=== PATIENT | male | born 1950 | race Caucasian/White ===

== ENCOUNTER 2019-06-06 15:41 | Observation (INO) | payer MEDICARE, BC ==
[2019-06-06 16:30] LABS: Absolute Neutrophil Ct (ANC) 6.53 (1.4-6.9); BASOPHIL % 0.3 % (0.0-0.4); Basophil (Absolute #) 0.03 (0-0.4); Eosinophil % 8.4 % (0.00-5.0); Eosinophil (Absolute #) 0.78 (0-0.5); Hematocrit 39.2 % (42-50); Hemoglobin 12.9 gm/dl (12.5-18.0); Lymphocyte (Absolute #) 0.89 (1.0-4.6); Lymphocytes % 9.5 % (24.0-44.0); Mean Cell Volume 90.3 fl (78-100); Mean Corpuscular Hemoglobin 29.7 pg (26-32); Mean Corpuscular Hgb Concent. 32.9 g/dl (32-36); Mean Platelet Volume 9.6 fl (7.5-11.0); Monocyte (Absolute #) 1.09 (0.0-1.3); Monocytes % 11.7 % (0.0-12.0); Neutrophil % 70.1 % (36.0-66.0); Platelet Count 383 K/mm3 (150-450); Red Blood Count 4.34 M/mm3 (4.1-5.6); Red Cell Distribution Width 12.4 % (11.5-14.0); White Blood Count 9.3 K/mm3 (4.0-10.5)
[2019-06-06 16:41] LABS: ALBUMIN 4.2 g/dL (3.5-5.0); ALKALINE PHOSPHATASE 92 U/L (38-126); ANION GAP 13.9 MEQ/L (5-15); BLOOD UREA NITROGEN 7 mg/dL (9-20); CHLORIDE 95 mmol/L (98-107); Calcium 9.3 mg/dL (8.4-10.2); Carbon Dioxide 32 mmol/L (22-30); Creatinine 1 0.65 mg/dL (0.66-1.25); Glucose 104 mg/dL (74-106); Potassium 4.7 mmol/L (3.5-5.1); SGOT/AST 35 U/L (17-59); SGPT/ALT 16 U/L (0-50); SODIUM 137 mmol/L (137-145); Total Protein 8.3 g/dL (6.3-8.2)
[2019-06-06] MEDS ORDERED: VENTOLIN COMMON CANISTER IH PRN (16:49)
[2019-06-06 17:10] LABS: INFLUENZA A NEGATIVE (NEGATIVE); INFLUENZA B NEGATIVE (NEGATIVE); RESPIRATORY SYNCTIAL VIRUS NEGATIVE (Negative)
[2019-06-06] MEDS ORDERED: MEDICATION INTERVENTION MC SCH (17:30)
[2019-06-06] MEDS: Sodium Chloride 0.9% 1000 ML 1,000 ML IV SCH (17:35)
[2019-06-06] MEDS: Lantus Insulin SQ SCH (17:35)
[2019-06-06] MEDS ORDERED: NON-FORMULARY ITEM (Insulin Detemir [Levemir] 30 UNIT) SQ SCH (18:00)
[2019-06-06] MEDS ORDERED: solu-MEDROL 40 MG IV SCH (18:15)
[2019-06-06] MEDS: Zithromax 500 MG/ 250 ML NaCl Premix 500 MG/250 ML IVPB IV SCH (18:22)
[2019-06-06] MEDS: solu-MEDROL 40 MG IV SCH (18:23)
[2019-06-06] MEDS: ROCEPHIN 1 Gm-D5w 50 ml Bag** 1 G/50 ML IVPB IV SCH (18:23)
[2019-06-06] MEDS ORDERED: PATIENT OWN MEDICATION IH PRN (19:34)
[2019-06-06] MEDS ORDERED: ZOCOR 20MG PO SCH (22:00)
[2019-06-07] MEDS: solu-MEDROL 40 MG IV SCH ×2 (03:11→11:57)
[2019-06-07] MEDS: Sodium Chloride 0.9% 1000 ML 1,000 ML IV SCH ×3 (03:11→22:25)
--- NOTE | 2019-06-07 08:44 | XRAY ---
Indication: Cough, congestion, and chest tightness 3-4 weeks. Comparison: December 11, 2005. PA/lateral chest again hyperinflated. New mild right upper lobe and lesser degree lingula subsegmental atelectasis/scarring. No focal infiltrate, consolidation, or large effusion. Heart is not enlarged. Bony thorax intact with mild degenerative changes. Impression: New bilateral subsegmental atelectasis/scarring. Stable COPD. Negative for acute pneumonic process or CHF. Comment: Preliminary interpretation was made by [facility]. No critical discrepancy.
[2019-06-07] MEDS: ZOCOR 20MG PO SCH (08:56)
[2019-06-07] MEDS: NORVASC 5 MG PO SCH (08:56)
[2019-06-07] MEDS: ROCEPHIN 1 Gm-D5w 50 ml Bag** 1 G/50 ML IVPB IV SCH (08:56)
[2019-06-07] MEDS: Cozaar 50 MG PO SCH (08:56)
[2019-06-07] MEDS: ECOTRIN 81 MG PO SCH (08:57)
[2019-06-07] MEDS: Zithromax 500 MG/ 250 ML NaCl Premix 500 MG/250 ML IVPB IV SCH (09:44)
[2019-06-07] MEDS: PATIENT OWN MEDICATION IH SCH (10:00)
[2019-06-07] MEDS ORDERED: NON-FORMULARY ITEM (Fluticasone/Umeclidin/Vilanter [Trelegy Ellipta 100-62.5-25] 1 PUFF) IH SCH (10:00)
[2019-06-07] MEDS ORDERED: PATIENT OWN MEDICATION IH SCH (10:00)
--- NOTE | 2019-06-07 11:41 | PCM.NOTE ---
Date and Time: 06/07/19 1140 Subjective Assessment: doing ok - Review of Systems Constitutional: No Fever, No Chills Eyes: No Symptoms Ears, Nose, & Throat: No Symptoms Respiratory: No Cough, No Short Of Breath Cardiac: No Chest Pain, No Edema, No Syncope Abdominal/Gastrointestinal: No Abdominal Pain, No Nausea, No Vomiting, No Diarrhea Genitourinary Symptoms: No Dysuria Musculoskeletal: No Back Pain, No Neck Pain Skin: No Rash Neurological: No Dizziness, No Focal Weakness, No Sensory Changes Psychological: No Symptoms Endocrine: No Symptoms Hematologic/Lymphatic: No Symptoms Immunological/Allergic: No Symptoms Objective Exam General Appearance: no apparent distress, alert Neurologic Exam: alert, oriented x 3, cooperative, normal mood/affect, nml cerebellar function, sensation nml, No motor deficits Skin Exam: normal color, warm, dry Eye Exam: PERRL, EOMI, eyes nml inspection Ears, Nose, Throat Exam: normal ENT inspection, pharynx normal, moist mucous membranes Neck Exam: normal inspection, non-tender, supple, full range of motion Respiratory Exam: diminished breath sounds, crackles/rales, rhonchi, wheezing, No respiratory distress Cardiovascular Exam: regular rate/rhythm, normal heart sounds Gastrointestinal/Abdomen Exam: soft, No tenderness, No mass Extremity Exam: normal inspection, normal range of motion Back Exam: normal inspection, normal range of motion, No CVA tenderness, No vertebral tenderness Male Genitalia Exam: deferred Rectal Exam: deferred OBJECTIVE DATA Vital Signs: Vital Signs - 24 hr Temp Pulse Resp BP Pulse Ox 06/07/19 08:00 97.6 F 66 20 178/77 94 L 06/07/19 07:48 64 18 93 L 06/07/19 04:00 97.5 F 56 L 20 170/73 92 L 06/06/19 23:35 97.7 F 55 L 18 144/65 94 L 06/06/19 20:00 98.5 F 84 20 178/81 94 L 06/06/19 19:20 88 20 94 L 06/06/19 16:00 98.5 F 79 18 177/80 93 L Pain Assessment - Last Documented Pain Scale Used 0-10 Pain Scale Intake and Output: Intake & Output 06/04/19 06/05/19 06/06/19 06/07/19 11:59 11:59 11:59 11:59 Intake Total 2634 Balance 2634 Weight 78.6 kg Lab Results: Accuchecks Date 06/07/19 Date 06/06/19 Time 07:58 Time 22:00 Accucheck Value: 171 Accucheck Value: 114 Lab Results-Last 24 Hours 06/06/19 06/06/19 06/06/19 Range/Units 16:10 16:10 16:10 WBC 9.3 (4.0-10.5) K/mm3 RBC 4.34 (4.1-5.6) M/mm3 Hgb 12.9 (12.5-18.0) gm/dl Hct 39.2 L (42-50) % MCV 90.3 (78-100) fl MCH 29.7 (26-32) pg MCHC 32.9 (32-36) g/dl RDW 12.4 (11.5-14.0) % Plt Count 383 (150-450) K/mm3 MPV 9.6 (7.5-11.0) fl Gran % 70.1 H (36.0-66.0) % Eos # (Auto) 0.78 H (0-0.5) Absolute Lymphs (auto) 0.89 L (1.0-4.6) Absolute Monos (auto) 1.09 (0.0-1.3) Lymphocytes % 9.5 L (24.0-44.0) % Monocytes % 11.7 (0.0-12.0) % Eosinophils % 8.4 H (0.00-5.0) % Basophils % 0.3 (0.0-0.4) % Absolute Granulocytes 6.53 (1.4-6.9) Basophils # 0.03 (0-0.4) Sodium 137 (137-145) mmol/L Potassium 4.7 (3.5-5.1) mmol/L Chloride 95 L (98-107) mmol/L Carbon Dioxide 32 H (22-30) mmol/L Anion Gap 13.9 (5-15) MEQ/L BUN 7 L (9-20) mg/dL Creatinine 0.65 L (0.66-1.25) mg/dL Estimated GFR > 60.0 ML/MIN Glucose 104 (74-106) mg/dL Hemoglobin A1c (4.5-6.0) % Calcium 9.3 (8.4-10.2) mg/dL Total Bilirubin 0.70 (0.2-1.3) mg/dL AST 35 (17-59) U/L ALT 16 (0-50) U/L Alkaline Phosphatase 92 (38-126) U/L Serum Total Protein 8.3 H (6.3-8.2) g/dL Albumin 4.2 (3.5-5.0) g/dL Influenza Type A Ag NEGATIVE (NEGATIVE) Influenza Type B Ag NEGATIVE (NEGATIVE) RSV (PCR) NEGATIVE (Negative) 06/06/19 Range/Units 18:00 WBC (4.0-10.5) K/mm3 RBC (4.1-5.6) M/mm3 Hgb (12.5-18.0) gm/dl Hct (42-50) % MCV (78-100) fl MCH (26-32) pg MCHC (32-36) g/dl RDW (11.5-14.0) % Plt Count (150-450) K/mm3 MPV (7.5-11.0) fl Gran % (36.0-66.0) % Eos # (Auto) (0-0.5) Absolute Lymphs (auto) (1.0-4.6) Absolute Monos (auto) (0.0-1.3) Lymphocytes % (24.0-44.0) % Monocytes % (0.0-12.0) % Eosinophils % (0.00-5.0) % Basophils % (0.0-0.4) % Absolute Granulocytes (1.4-6.9) Basophils # (0-0.4) Sodium (137-145) mmol/L Potassium (3.5-5.1) mmol/L Chloride (98-107) mmol/L Carbon Dioxide (22-30) mmol/L Anion Gap (5-15) MEQ/L BUN (9-20) mg/dL Creatinine (0.66-1.25) mg/dL Estimated GFR ML/MIN Glucose (74-106) mg/dL Hemoglobin A1c 6.74 H (4.5-6.0) % Calcium (8.4-10.2) mg/dL Total Bilirubin (0.2-1.3) mg/dL AST (17-59) U/L ALT (0-50) U/L Alkaline Phosphatase (38-126) U/L Serum Total Protein (6.3-8.2) g/dL Albumin (3.5-5.0) g/dL Influenza Type A Ag (NEGATIVE) Influenza Type B Ag (NEGATIVE) RSV (PCR) (Negative) Radiology Exams: Radiology Procedures Category Date Time Status CHEST 2 VIEWS (PA AND LAT) Routine Exams 06/06/19 16:20 Completed Assessment/Plan (1) COPD (chronic obstructive pulmonary disease) with acute bronchitis Current Visit: Yes Status: Acute Assessment & Plan: Chief Complaint Diagnosis pne,influenza Allergies Allergy/AdvReac Type Severity Reaction Status Date / Time Sulfa (Sulfonamide AdvReac Verified 06/06/19 16:09 Antibiotics) Vital Signs (Last 24 hours) Temp Pulse Resp BP Pulse Ox 06/07/19 08:00 97.6 F 66 20 178/77 94 L 06/07/19 07:48 64 18 93 L 06/07/19 04:00 97.5 F 56 L 20 170/73 92 L 06/06/19 23:35 97.7 F 55 L 18 144/65 94 L 06/06/19 20:00 98.5 F 84 20 178/81 94 L 06/06/19 19:20 88 20 94 L 06/06/19 16:00 98.5 F 79 18 177/80 93 L Home Medications Medication Instructions Recorded Confirmed Last Taken Type Albuterol Common Canister 1 puff IH QID PRN 06/06/19 06/06/19 06/06/19 12:00 History [Ventolin Common Canister] 1puff Amlodipine Besylate 5 mg PO DAILY 06/06/19 06/06/19 06/06/19 09:00 History 5mg Aspirin EC 81 mg [Ecotrin 81 81 mg PO DAILY 06/06/19 06/06/19 06/06/19 08:00 History mg] Atorvastatin Calcium 20 mg PO DAILY 06/06/19 06/06/19 06/06/19 08:00 History 20mg Fluticasone/Umeclidin/Vilanter 1 puff IH DAILY 06/06/19 06/06/19 06/06/19 08:00 History [Trelegy Ellipta 100-62.5-25] 1puff Insulin Detemir [Levemir] 30 unit SQ 1800 06/06/19 06/06/19 06/05/19 18:00 History 30units Losartan Potassium 50 mg PO DAILY 06/06/19 06/06/19 06/05/19 08:00 History Current Medications Generic Name Dose Route Start Last Admin Trade Name Freq PRN Reason Stop Dose Admin Amlodipine Besylate 5 mg 06/07/19 10:00 06/07/19 08:56 Norvasc 5 Mg PO 07/07/19 09:59 5 mg DAILY DAVE Administration Aspirin 81 mg 06/07/19 10:00 06/07/19 08:57 Ecotrin 81 Mg PO 07/07/19 09:59 81 mg DAILY DAVE Administration Sodium Chloride 1,000 mls @ 100 mls/hr 06/06/19 17:00 06/07/19 03:11 Sodium Chloride 0.9% 1000 Ml IV 07/06/19 16:59 100 mls/hr .Q10H DAVE Administration Azithromycin 500 mg in 250 mls @ 250 mls/hr 06/06/19 20:00 06/07/19 09:44 Zithromax 500 Mg/ 250 Ml Nacl Premix IV 07/06/19 19:59 250 mls/hr Q24H10 DAVE Administration Ceftriaxone Sodium/Dextrose 1 g in 50 mls @ 100 mls/hr 06/06/19 20:00 08:56 Rocephin 1 Gm-D5w 50 Ml Bag IV 07/06/19 19:59 100 mls/hr Q24H10 DAVE Administration Insulin Glargine 30 unit 06/06/19 18:00 06/06/19 17:35 Lantus Insulin SQ 07/06/19 17:59 30 unit 1800 DAVE Administration Insulin Human Lispro 0 unit 06/06/19 17:00 Humalog SQ 07/06/19 16:59 UD PRN Losartan Potassium 50 mg 06/07/19 10:00 06/07/19 08:56 Cozaar 50 Mg PO 07/07/19 09:59 50 mg DAILY DAVE Administration Methylprednisolone Sodium Succinate 40 mg 06/06/19 20:00 06/07/19 03:11 Solu-Medrol 40 Mg IV 07/06/19 19:59 40 mg Q8H DAVE Administration Patient Own Med ( 2 each 06/06/19 19:34 Ventolin) 07/06/19 19:33 QIDPRN PRN SHORTNESS OF BREATH/WHEEZING Patient Own Med ( 0 each 06/07/19 10:00 Trelegy) 07/07/19 09:59 QAM DAVE Simvastatin 20 mg 06/07/19 10:00 06/07/19 08:56 Zocor 20mg PO 07/07/19 09:59 20 mg DAILY DAVE Administration Discontinued Medications Generic Name Dose Route Start Last Admin Trade Name Freq PRN Reason Stop Dose Admin Albuterol Sulfate 1 puff 06/06/19 16:49 Ventolin Common Canister IH 07/06/19 16:48 QID PRN PRN SHORTNESS OF BREATH Ceftriaxone Sodium/Dextrose 1 g in 50 mls @ 100 mls/hr 06/07/19 20:00 Rocephin 1 Gm-D5w 50 Ml Bag IV 07/07/19 19:59 Q24H10 [facility] Methylprednisolone Sodium Succinate 40 mg 06/06/19 18:15 06/06/19 18:29 Solu-Medrol 40 Mg IV 07/06/19 18:14 Not Given Q8H DAVE Miscellaneous Information 0 each 06/06/19 17:30 Medication Intervention 07/06/19 17:29 .RN TO CHECK WITH RT DAVE Patient Own Medication 1 each 06/07/19 10:00 06/07/19 07:48 Patient Own Medication 07/07/19 09:59 1 each QAM DAVE Administration Simvastatin 20 mg 06/06/19 22:00 Zocor 20mg PO 07/06/19 21:59 HS DAVE Intake & Output (Last 24 hours) 06/04/19 06/05/19 06/06/19 06/07/19 11:59 11:59 11:59 11:59 Intake Total 2634 Balance 2634 Weight 78.6 kg Laboratory Results (Last 24 hours) 06/06/19 06/06/19 06/06/19 18:00 16:10 16:10 WBC RBC Hgb Hct MCV MCH MCHC RDW Plt Count MPV Gran % Eos # (Auto) Absolute Lymphs (auto) Absolute Monos (auto) Lymphocytes % Monocytes % Eosinophils % Basophils % Absolute Granulocytes Basophils # Sodium 137 Potassium 4.7 Chloride 95 L Carbon Dioxide 32 H Anion Gap 13.9 BUN 7 L Creatinine 0.65 L Estimated GFR > 60.0 Glucose 104 Hemoglobin A1c 6.74 H Calcium 9.3 Total Bilirubin 0.70 AST 35 ALT 16 Alkaline Phosphatase 92 Serum Total Protein 8.3 H Albumin 4.2 Influenza Type A Ag NEGATIVE Influenza Type B Ag NEGATIVE RSV (PCR) NEGATIVE 06/06/19 16:10 WBC 9.3 RBC 4.34 Hgb 12.9 Hct 39.2 L MCV 90.3 MCH 29.7 MCHC 32.9 RDW 12.4 Plt Count 383 MPV 9.6 Gran % 70.1 H Eos # (Auto) 0.78 H Absolute Lymphs (auto) 0.89 L Absolute Monos (auto) 1.09 Lymphocytes % 9.5 L Monocytes % 11.7 Eosinophils % 8.4 H Basophils % 0.3 Absolute Granulocytes 6.53 Basophils # 0.03 Sodium Potassium Chloride Carbon Dioxide Anion Gap BUN Creatinine Estimated GFR Glucose Hemoglobin A1c Calcium Total Bilirubin AST ALT Alkaline Phosphatase Serum Total Protein Albumin Influenza Type A Ag Influenza Type B Ag RSV (PCR) Orders (Last 24 hours) Category Date Time Status Activity as Tolerated TOLERATED Activity 06/06/19 15:47 Active Accucheck ACHS Care 06/06/19 16:00 Active Isolation, Initiate & Maintain Q4H Care 06/06/19 15:47 Completed Miscellaneous Nursing Order ROUTINE Care 06/06/19 16:[address] in Observation ROUTINE Care 06/06/19 15:47 Active Sarmad Siu ROUTINE Care 06/06/19 16:00 Active Regular Diet Diet 06/06/19 Dinner Active Regular Diet Diet 06/06/19 Dinner Completed CHEST 2 VIEWS (PA AND LAT) Routine Exams 06/06/19 16:20 Completed CBC W DIFF Urgent Lab 06/06/19 16:10 Completed CMP Urgent Lab 06/06/19 16:10 Completed HEMOGLOBIN A1C Urgent Lab 06/06/19 18:00 Completed Respiratory Panel Urgent Lab 06/06/19 16:10 Completed Albuterol Common Canister [Ventolin Common Canister* Med 06/06/19 16:49 Discontinued ] 1 puff IH QID PRN PRN Amlodipine Besylate 5 mg [Norvasc 5 mg] Med 06/07/19 10:00 Active 5 mg PO DAILY Aspirin EC 81 mg [Ecotrin 81 mg] Med 06/07/19 10:00 Active 81 mg PO DAILY Azithromycin 500 mg/250 ml [Zithromax 500 MG/ 250 ML Med 06/06/19 20:00 Active NaCl Premix] 500 mg in 250 ml IV Q24H10 Ceftriaxone 1 GM/50 ML PREMIX* [ROCEPHIN 1 Gm-D5w 50 ml Med 06/06/19 20:00 Active Bag] 1 g in 50 ml IV Q24H10 Ceftriaxone 1 GM/50 ML PREMIX* [ROCEPHIN 1 Gm-D5w 50 ml Med 06/07/19 20:00 Discontinued Bag] 1 g in 50 ml IV Q24H10 Insulin Glargine [Lantus Insulin] Med 06/06/19 18:00 Active 30 unit SQ 1800 Insulin Lispro [Humalog] Med 06/06/19 17:00 Active 0 unit SQ UD PRN Losartan Potassium 50 mg [Cozaar 50 MG] Med 06/07/19 10:00 Active 50 mg PO DAILY Medication Intervention Med 06/06/19 17:30 Discontinued 0 each MC .RN TO CHECK WITH RT Methylprednisolone Sod Suc 40M [solu-MEDROL 40 MG] Med 06/06/19 18:15 Discontinued 40 mg IV Q8H Methylprednisolone Sod Suc 40M [solu-MEDROL 40 MG] Med 06/06/19 20:00 Active 40 mg IV Q8H NaCl 0.9% 1000 ml [Sodium Chloride 0.9% 1000 ML] 1,000 Med 06/06/19 17:00 Active ml IV 100 mls/hr Patient Own Med [Patient Own Medication] Med 06/07/19 10:00 Active 0 each IH QAM Patient Own Med [Patient Own Medication] Med 06/07/19 10:00 Discontinued 1 each IH QAM Patient Own Med [Patient Own Medication] Med 06/06/19 19:34 Active 2 each IH QIDPRN PRN Simvastatin 20Mg [Zocor 20Mg] Med 06/07/19 10:00 Active 20 mg PO DAILY Simvastatin 20Mg [Zocor 20Mg] Med 06/06/19 22:00 Discontinued 20 mg PO HS Pulse Oximetry .spot check RT 06/07/19 08:11 Active Respiratory MDI UD RT 06/07/19 07:00 Active Respiratory Therapy Assessment DAILY RT 06/06/19 19:30 Active Respiratory Therapy Consult ROUTINE RT 06/06/19 16:15 Completed Patient Care Notes (Last 24 hours) 06/06/19 18:32 Nursing Note by Klarissa Oliverso pt's will bring Kit to hospital on 06/06 Initialized on 06/06/19 18:32 - END OF NOTE 06/06/19 17:55 Nursing Note by Klarissa Oliveros pt placed in isolation as a verbal order from dr. johns. dr. johns ordered a resp panel and said that if it came back negative to dc isolation. pt's lab results were negative and isolation dc'd Initialized on 06/06/19 17:55 - END OF NOTE Code(s): J44.0 - CHR OBSTRUCTIVE PULMON DISEASE WITH (ACUTE) LOWER RESP INFCT; J20.9 - ACUTE BRONCHITIS, UNSPECIFIED
[2019-06-07] MEDS: HUMALOG SQ PRN ×2 (17:10→22:21)
[2019-06-07] MEDS: Lantus Insulin SQ SCH (17:11)
[2019-06-07] MEDS ORDERED: ROCEPHIN 1 Gm-D5w 50 ml Bag** 1 G/50 ML IVPB IV SCH (20:00)
[2019-06-08] MEDS ORDERED: solu-MEDROL 40 MG IV SCH
[2019-06-08 07:55] VITALS: BP 168/75; PULSE 64; O2SAT 92
[2019-06-08] MEDS: ECOTRIN 81 MG PO SCH (09:13)
[2019-06-08] MEDS: ZOCOR 20MG PO SCH (09:13)
[2019-06-08] MEDS: Cozaar 50 MG PO SCH (09:13)
[2019-06-08] MEDS: NORVASC 5 MG PO SCH (09:13)
[2019-06-08] MEDS: PATIENT OWN MEDICATION IH SCH (09:14)
[2019-06-08] MEDS: Zithromax 500 MG/ 250 ML NaCl Premix 500 MG/250 ML IVPB IV SCH (09:14)
[2019-06-08] MEDS: ROCEPHIN 1 Gm-D5w 50 ml Bag** 1 G/50 ML IVPB IV SCH (10:01)
--- NOTE | 2019-06-09 19:33 | PCM.DS ---
Discharge Summary Date of Admission: 06/06/19 15:47 Admitting Physician: SILVIA CAMPBELL Primary Care Provider: SILVIA CAMPBELL Allergies Allergies Sulfa (Sulfonamide Antibiotics) Adverse Reaction (Verified 06/06/19 16:09) Hospital Summary - Hospital Course Hospital Course: Chief Complaint Diagnosis pne,influenza Allergies Allergy/AdvReac Type Severity Reaction Status Date / Time Sulfa (Sulfonamide AdvReac Verified 06/06/19 16:09 Antibiotics) Home Medications Medication Instructions Recorded Confirmed Last Taken Type Albuterol Common Canister 1 puff IH QID PRN 06/06/19 06/06/19 06/06/19 12:00 History [Ventolin Common Canister] 1puff Amlodipine Besylate 5 mg PO DAILY 06/06/19 06/06/19 06/06/19 09:00 History 5mg Aspirin EC 81 mg [Ecotrin 81 81 mg PO DAILY 06/06/19 06/06/19 06/06/19 08:00 History mg] Atorvastatin Calcium 20 mg PO DAILY 06/06/19 06/06/19 06/06/19 08:00 History 20mg Fluticasone/Umeclidin/Vilanter 1 puff IH DAILY 06/06/19 06/06/19 06/06/19 08:00 History [Trelegy Ellipta 100-62.5-25] 1puff Insulin Detemir [Levemir] 30 unit SQ 1800 06/06/19 06/06/19 06/05/19 18:00 History 30units Losartan Potassium 50 mg PO DAILY 06/06/19 06/06/19 06/05/19 08:00 History Cephalexin Mh 500 mg [Keflex 500 500 mg PO QID #28 capsule 06/08/19 Unknown Rx mg] Methylprednisolone Packet 4 mg PO UD #30 packet 06/08/19 Unknown Rx [Medrol Dosepack] Current Medications Discontinued Medications Generic Name Dose Route Start Last Admin Trade Name Freq PRN Reason Stop Dose Admin Albuterol Sulfate 1 puff 06/06/19 16:49 Ventolin Common Canister IH 07/06/19 16:48 QID PRN PRN SHORTNESS OF BREATH Amlodipine Besylate 5 mg 06/07/19 10:00 06/08/19 09:13 Norvasc 5 Mg PO 07/07/19 09:59 5 mg DAILY DAVE Administration Aspirin 81 mg 06/07/19 10:00 06/08/19 09:13 Ecotrin 81 Mg PO 07/07/19 09:59 81 mg DAILY DAVE Administration Sodium Chloride 1,000 mls @ 100 mls/hr 06/06/19 17:00 06/07/19 22:25 Sodium Chloride 0.9% 1000 Ml IV 07/06/19 16:59 100 mls/hr .Q10H DAVE Administration Azithromycin 500 mg in 250 mls @ 250 mls/hr 06/06/19 20:00 06/08/19 09:14 Zithromax 500 Mg/ 250 Ml Nacl Premix IV 07/06/19 19:59 Not Given Q24H10 DAVE Ceftriaxone Sodium/Dextrose 1 g in 50 mls @ 100 mls/hr 06/07/19 20:00 Rocephin 1 Gm-D5w 50 Ml Bag IV 07/07/19 19:59 Q24H10 DAVE Ceftriaxone Sodium/Dextrose 1 g in 50 mls @ 100 mls/hr 06/06/19 20:00 10:01 Rocephin 1 Gm-D5w 50 Ml Bag IV 07/06/19 19:59 Not Given Q24H10 DAVE Insulin Glargine 30 unit 06/06/19 18:00 06/07/19 17:11 Lantus Insulin SQ 07/06/19 17:59 30 unit 1800 DAVE Administration Insulin Human Lispro 0 unit 06/06/19 17:00 06/07/19 22:21 Humalog SQ 07/06/19 16:59 2 unit UD PRN Administration Losartan Potassium 50 mg 06/07/19 10:00 06/08/19 09:13 Cozaar 50 Mg PO 07/07/19 09:59 50 mg DAILY DAVE Administration Methylprednisolone Sodium Succinate 40 mg 06/06/19 18:15 06/06/19 18:29 Solu-Medrol 40 Mg IV 07/06/19 18:14 Not Given Q8H DAVE Methylprednisolone Sodium Succinate 40 mg 06/06/19 20:00 06/07/19 11:57 Solu-Medrol 40 Mg IV 07/06/19 19:59 40 mg Q8H DAVE Administration Methylprednisolone Sodium Succinate 40 mg 06/08/19 00:00 06/08/19 00:17 Solu-Medrol 40 Mg IV 07/08/19 00:00 40 mg Q12H DAVE Administration Miscellaneous Information 0 each 06/06/19 17:30 Medication Intervention 07/06/19 17:29 .RN TO CHECK WITH RT [facility] Patient Own Medication 1 each 06/07/19 10:00 06/07/19 07:48 Patient Own Medication 07/07/19 09:59 1 each QAM DAVE Administration Patient Own Med ( 2 each 06/06/19 19:34 Ventolin) 07/06/19 19:33 QIDPRN PRN SHORTNESS OF BREATH/WHEEZING Patient Own Med ( 0 each 06/07/19 10:00 06/08/19 09:14 Trelegy) 07/07/19 09:59 1 each QAM DAVE Administration Simvastatin 20 mg 06/06/19 22:00 Zocor 20mg PO 07/06/19 21:59 HS [facility] Simvastatin 20 mg 06/07/19 10:00 06/08/19 09:13 Zocor 20mg PO 07/07/19 09:59 20 mg DAILY DAVE Administration Intake & Output (Last 24 hours) 06/07/19 06/08/19 06/09/19 06/10/19 11:59 11:59 11:59 11:59 Intake Total 2634 4313 Balance 2634 4313 Weight 78.6 kg - Vitals & Intake/Output Vital Signs: Vital Signs Temperature 97.3 F 06/08/19 07:54 Pulse Rate 64 06/08/19 07:54 Respiratory Rate 18 06/08/19 07:54 Blood Pressure 168/75 06/08/19 07:54 O2 Sat by Pulse Oximetry 92 L 06/08/19 07:54 Intake & Output: Intake & Output 06/07/19 06/08/19 06/09/19 06/10/19 11:59 11:59 11:59 11:59 Intake Total 2634 4313 Balance 2634 4313 Weight 78.6 kg - Lab Result Diagrams: 06/06/19 16:10 06/06/19 16:10 - Procedures and Test Procedures and Tests throughout Hospitalization: Therapy Orders & Screens 06/06/19 16:15 Respiratory Therapy Consult ROUTINE Comment: Reason For Exam: pne,influenza Diagnosis: pne,influenza 06/06/19 19:30 Respiratory Therapy Assessment DAILY Comment: Diagnosis: pne,influenza 06/07/19 07:00 Respiratory MDI UD Comment: [place] Diagnosis: pne,influenza 06/08/19 09:32 Qualify for Home Oxygen ROUTINE Comment: SITTING AND WALKING PLEASE Diagnosis: pne,influenza Discharge Exam General Appearance: no apparent distress, alert Neurologic Exam: alert, oriented x 3, cooperative, normal mood/affect, nml cerebellar function, sensation nml, No motor deficits Eye Exam: PERRL, EOMI, eyes nml inspection Ears, Nose, Throat Exam: normal ENT inspection, pharynx normal, moist mucous membranes Neck Exam: normal inspection, non-tender, supple, full range of motion Respiratory Exam: normal breath sounds, lungs clear, No respiratory distress Cardiovascular Exam: regular rate/rhythm, normal heart sounds Gastrointestinal/Abdomen Exam: soft, No tenderness, No mass Male Genitalia Exam: deferred Rectal Exam: deferred Back Exam: normal inspection, normal range of motion, No CVA tenderness, No vertebral tenderness Extremity Exam: normal inspection, normal range of motion Skin Exam: normal color, warm, dry Final Diagnosis/Problem List - Final Discharge Diagnosis/Problem (1) COPD (chronic obstructive pulmonary disease) with acute bronchitis Status: Acute Assessment & Plan: Chief Complaint Diagnosis pne,influenza Allergies Allergy/AdvReac Type Severity Reaction Status Date / Time Sulfa (Sulfonamide AdvReac Verified 06/06/19 16:09 Antibiotics) Home Medications Medication Instructions Recorded Confirmed Last Taken Type Albuterol Common Canister 1 puff IH QID PRN 06/06/19 06/06/19 06/06/19 12:00 History [Ventolin Common Canister] 1puff Amlodipine Besylate 5 mg PO DAILY 06/06/19 06/06/19 06/06/19 09:00 History 5mg Aspirin EC 81 mg [Ecotrin 81 81 mg PO DAILY 06/06/19 06/06/19 06/06/19 08:00 History mg] Atorvastatin Calcium 20 mg PO DAILY 06/06/19 06/06/19 06/06/19 08:00 History 20mg Fluticasone/Umeclidin/Vilanter 1 puff IH DAILY 06/06/19 06/06/19 06/06/19 08:00 History [Kit Denney 100-62.5-25] 1puff Insulin Detemir [Levemir] 30 unit SQ 1800 06/06/19 06/06/19 06/05/19 18:00 History 30units Losartan Potassium 50 mg PO DAILY 06/06/19 06/06/19 06/05/19 08:00 History Cephalexin Mh 500 mg [Keflex 500 500 mg PO QID #28 capsule 06/08/19 Unknown Rx mg] Methylprednisolone Packet 4 mg PO UD #30 packet 06/08/19 Unknown Rx [Medrol Dosepack] Current Medications Discontinued Medications Generic Name Dose Route Start Last Admin Trade Name Freq PRN Reason Stop Dose Admin Albuterol Sulfate 1 puff 06/06/19 16:49 Ventolin Common Canister IH 07/06/19 16:48 QID PRN PRN SHORTNESS OF BREATH Amlodipine Besylate 5 mg 06/07/19 10:00 06/08/19 09:13 Norvasc 5 Mg PO 07/07/19 09:59 5 mg DAILY DAVE Administration Aspirin 81 mg 06/07/19 10:00 06/08/19 09:13 Ecotrin 81 Mg PO 07/07/19 09:59 81 mg DAILY DAVE Administration Sodium Chloride 1,000 mls @ 100 mls/hr 06/06/19 17:00 06/07/19 22:25 Sodium Chloride 0.9% 1000 Ml IV 07/06/19 16:59 100 mls/hr .Q10H DAVE Administration Azithromycin 500 mg in 250 mls @ 250 mls/hr 06/06/19 20:00 06/08/19 09:14 Zithromax 500 Mg/ 250 Ml Nacl Premix IV 07/06/19 19:59 Not Given Q24H10 DAVE Ceftriaxone Sodium/Dextrose 1 g in 50 mls @ 100 mls/hr 06/07/19 20:00 Rocephin 1 Gm-D5w 50 Ml Bag IV 07/07/19 19:59 Q24H10 DAVE Ceftriaxone Sodium/Dextrose 1 g in 50 mls @ 100 mls/hr 06/06/19 20:00 10:01 Rocephin 1 Gm-D5w 50 Ml Bag IV 07/06/19 19:59 Not Given Q24H10 DAVE Insulin Glargine 30 unit 06/06/19 18:00 06/07/19 17:11 Lantus Insulin SQ 07/06/19 17:59 30 unit 1800 DAVE Administration Insulin Human Lispro 0 unit 06/06/19 17:00 06/07/19 22:21 Humalog SQ 07/06/19 16:59 2 unit UD PRN Administration Losartan Potassium 50 mg 06/07/19 10:00 06/08/19 09:13 Cozaar 50 Mg PO 07/07/19 09:59 50 mg DAILY DAVE Administration Methylprednisolone Sodium Succinate 40 mg 06/06/19 18:15 06/06/19 18:29 Solu-Medrol 40 Mg IV 07/06/19 18:14 Not Given Q8H DAVE Methylprednisolone Sodium Succinate 40 mg 06/06/19 20:00 06/07/19 11:57 Solu-Medrol 40 Mg IV 07/06/19 19:59 40 mg Q8H DAVE Administration Methylprednisolone Sodium Succinate 40 mg 06/08/19 00:00 06/08/19 00:17 Solu-Medrol 40 Mg IV 07/08/19 00:00 40 mg Q12H DAVE Administration Miscellaneous Information 0 each 06/06/19 17:30 Medication Intervention 07/06/19 17:29 .RN TO CHECK WITH RT [facility] Patient Own Medication 1 each 06/07/19 10:00 06/07/19 07:48 Patient Own Medication 07/07/19 09:59 1 each QAM DAVE Administration Patient Own Med ( 2 each 06/06/19 19:34 Ventolin) 07/06/19 19:33 QIDPRN PRN SHORTNESS OF BREATH/WHEEZING Patient Own Med ( 0 each 06/07/19 10:00 06/08/19 09:14 Trelegy) 07/07/19 09:59 1 each QAM DAVE Administration Simvastatin 20 mg 06/06/19 22:00 Zocor 20mg PO 07/06/19 21:59 HS DAVE Simvastatin 20 mg 06/07/19 10:00 06/08/19 09:13 Zocor 20mg PO 07/07/19 09:59 20 mg DAILY DAVE Administration Intake & Output (Last 24 hours) 06/07/19 06/08/19 06/09/19 06/10/19 11:59 11:59 11:59 11:59 Intake Total 2637 4314 Balance 2630 4313 Weight 78.6 kg Code(s): J44.0 - CHR OBSTRUCTIVE PULMON DISEASE WITH (ACUTE) LOWER RESP INFCT; J20.9 - ACUTE BRONCHITIS, UNSPECIFIED - Discharge Discharge Date: 06/08/19 Disposition: Home, Self-Care Condition: Stable Prescriptions: New Cephalexin Mh 500 mg [Keflex 500 mg] 500 mg PO QID #28 capsule Methylprednisolone Packet [Medrol Dosepack] 4 mg PO UD #30 packet Continue Albuterol Common Canister [Ventolin Common Canister] 1 puff IH QID PRN PRN Reason: Shortness Of Breath Amlodipine Besylate 5 mg PO DAILY Aspirin EC 81 mg [Ecotrin 81 mg] 81 mg PO DAILY Atorvastatin Calcium 20 mg PO DAILY Fluticasone/Umeclidin/Vilanter [Trelegy Ellipta 100-62.5-25] 1 puff IH DAILY Insulin Detemir [Levemir] 30 unit SQ 1800 Losartan Potassium 50 mg PO DAILY Instructions: Chronic Obstructive Pulmonary Disease (COPD), Including Emphysema , Exacerbation of COPD (DC) Follow up with: SILVIA CAMPBELL MD [Primary Care Provider] - 06/15/19 11:15 am Forms: Discharge Instructions
== END 2019-06-08 10:25 | disposition home or self-care (01) ==
LOC: MED SURG 15:47
PROVIDERS: ADMIT General Practice; ATTEND General Practice
DX: J44.1 Chronic obstructive pulmonary disease with (acute) exacerbation (principal); E11.9 Type 2 diabetes mellitus without complications; M35.3 Polymyalgia rheumatica; E78.00 Pure hypercholesterolemia, unspecified; I10 Essential (primary) hypertension; Z79.899 Other long term (current) drug therapy
CPT/HCPCS: 36415; 71046; 80053; 82962; 83036; 85025; 87631; 94640; 94760; G0378; J0456; J0696; J1817; J2920; A9270-GY

== ENCOUNTER 2022-02-06 14:11 | Inpatient (IN) | payer MEDICARE, BC ==
--- NOTE | 2022-02-06 14:13 | ERPHSYRPT ---
- History of Present Illness Time Seen by Provider: 02/06/22 14:13 Source: patient Exam Limitations: no limitations Physician History: This is a 71-year-old white male patient of Dr. Campbell who sent the patient over to our facility because the patient's blood pressure is very high and he was having headaches. Patient has been going through medication changes for treatment of his high blood pressure. Patient is on losartan, amlodipine, carvedilol and was started on clonidine recently. Patient has a history of hypertension, diabetes, hyperlipidemia and COPD. He has had no visual changes. He denies chest pain. He denies shortness of breath. His last dose of any blood pressure medication was approximately 2-1/2 hours ago. Timing/Duration: worse, other (Intermittently over 1 month) Severity: moderate Associated Symptoms: headaches, No nausea, No vomiting, No shortness of breath, No chest pain, No fever, No weakness Allergies/Adverse Reactions: Sulfa (Sulfonamide Antibiotics) Adverse Reaction (Verified 02/06/22 14:27) Home Medications: Albuterol Common Canister [Ventolin Common Canister] 1 puff IH QID PRN 06/06/19 [History] Aspirin EC 81 mg [Ecotrin 81 mg] 81 mg PO DAILY 06/06/19 [History] Atorvastatin Calcium 20 mg PO DAILY 06/06/19 [History] Fluticasone/Umeclidin/Vilanter [Trelegy Ellipta 100-62.5-25] 1 puff IH DAILY 06/06/19 [History] Insulin Detemir [Levemir] 30 unit SQ 1800 06/06/19 [History] Losartan Potassium 50 mg PO BID 06/06/19 [History] Carvedilol 3.125 mg [Coreg 3.125 MG] 3.125 mg PO BID 02/06/22 [History] cloNIDine HCL [Clonidine HCl] 0.1 mg PO BID 02/06/22 [History] Travel Risk - International Travel Have you traveled outside of the country in past 3 weeks: No - Coronavirus Screening Are you exhibiting any of the following symptoms?: No Close contact with a COVID-19 positive Pt in past 14-21 Days: No - Review of Systems Constitutional: No Symptoms Eyes: No Symptoms Ears, Nose, & Throat: No Symptoms Respiratory: No Symptoms Cardiac: No Symptoms Abdominal/Gastrointestinal: No Symptoms Genitourinary Symptoms: No Symptoms Musculoskeletal: No Symptoms Skin: No Symptoms Neurological: Headache Psychological: No Symptoms Endocrine: No Symptoms Hematologic/Lymphatic: No Symptoms Immunological/Allergic: No Symptoms All Other Systems: Reviewed and Negative - Past Medical History Pertinent Past Medical History: Yes Neurological History: No Pertinent History ENT History: No Pertinent History Cardiac History: Hypertension Respiratory History: COPD Endocrine Medical History: Diabetes Type II Musculoskeletal History: No Pertinent History GI Medical History: Hernia History: No Pertinent History Psycho-Social History: No Pertinent History Male Reproductive Disorders: No Pertinent History - Past Surgical History Past Surgical History: Yes Neuro Surgical History: No Pertinent History Cardiac: No Pertinent History Respiratory: No Pertinent History Gastrointestinal: Hernia Repair Genitourinary: No Pertinent History Musculoskeletal: No Pertinent History Male Surgical History: No Pertinent History - Social History Smoking Status: Former smoker Drug Use: none - Nursing Vital Signs Nursing Vital Signs: Initial Vital Signs Blood Pressure 264/104 02/06/22 14:16 Pain Scale Pain Intensity 7 - Physical Exam General Appearance: mild distress, alert, anxiety Eye Exam: PERRL/EOMI, eyes nml inspection Ears, Nose, Throat Exam: normal ENT inspection, moist mucous membranes Neck Exam: normal inspection, non-tender, supple, full range of motion Respiratory Exam: normal breath sounds, lungs clear, airway intact, No chest tenderness, No respiratory distress Cardiovascular Exam: regular rate/rhythm, normal heart sounds, normal peripheral pulses Gastrointestinal/Abdomen Exam: soft, normal bowel sounds, No tenderness Rectal Exam: not done Back Exam: normal inspection, normal range of motion, No CVA tenderness, No vertebral tenderness Extremity Exam: normal inspection, normal range of motion, pelvis stable Neurologic Exam: alert, oriented x 3, cooperative, shellfish shucker II-XII nml as tested, normal mood/affect, nml cerebellar function, nml station & gait, sensation nml Skin Exam: normal color, warm, dry Lymphatic Exam: No adenopathy SpO2 Interpretation: normal O2 Delivery: Room Air - Course Nursing assessment & vital signs reviewed: Yes EKG Interpreted by Me: RATE (52), Sinus Rhythm, NORMAL AXIS, NORMAL INTERVALS, NORMAL QRS, NORMAL ST-T, Other (I do not agree with the computer reading of minimal ST elevation in the inferior leads.) Ordered Tests: Active Orders 24 hr Category Date Time Status Storeroom Clerk STAT Care 02/06/22 14:27 Active EKG-ER Only STAT Care 02/06/22 14:27 Active IV Insertion STAT Care 02/06/22 14:27 Active NPO (ED) STAT Care 02/06/22 14:26 Active HEAD WITHOUT CONTRAST [CT] Stat Exams 02/06/22 14:26 Completed CBC W DIFF Stat Lab 02/06/22 14:26 Completed CMP Stat Lab 02/06/22 14:25 Completed MAGNESIUM Stat Lab 02/06/22 14:25 Completed PROTIME WITH INR Stat Lab 02/06/22 14:25 Completed TROPONIN Q4H Lab 02/06/22 14:25 Completed TROPONIN Q4H Lab 02/06/22 18:45 Ordered TROPONIN Q4H Lab 02/06/22 22:45 Ordered UA W/RFX CULTURE Stat Lab 02/06/22 Ordered Medication Summary Discontinued Medications Generic Name Dose Route Start Last Admin Trade Name Freq PRN Reason Stop Dose Admin Hydralazine HCl 10 mg 02/06/22 14:27 02/06/22 14:32 Hydralazine Hcl 20 Mg/Ml Vial IV 02/06/22 14:28 10 mg STAT ONE Administration Hydralazine HCl Confirm 02/06/22 14:29 Hydralazine Hcl 20 Mg/Ml Vial Administered 02/06/22 14:30 Dose 20 mg .ROUTE .STK-MED ONE Hydralazine HCl 10 mg 02/06/22 15:06 02/06/22 15:10 Hydralazine Hcl 20 Mg/Ml Vial IV 02/06/22 15:07 10 mg STAT ONE Administration Hydralazine HCl Confirm 02/06/22 15:09 Hydralazine Hcl 20 Mg/Ml Vial Administered 02/06/22 15:10 Dose 20 mg .ROUTE .STK-MED ONE Lab/Rad Data: Laboratory Result Diagrams 02/06/22 14:26 02/06/22 14:25 Laboratory Results 02/06/22 02/06/22 02/06/22 Range/Units 14:26 14:25 14:25 WBC 14.0 H (4.0-10.5) x10^3/uL RBC 4.72 (4.1-5.6) x10^6/uL Hgb 14.2 (12.5-18.0) g/dL Hct 44.3 (42-50) % MCV 93.9 (78-100) fL MCH 30.1 (26-32) pg MCHC 32.1 (32-36) g/dL RDW 12.2 (11.5-14.0) % Plt Count 325 (150-450) x10^3/uL MPV 10.4 (7.5-11.0) fL Gran % 68.7 H (36.0-66.0) % Immature Gran % (Auto) 0.4 (0.00-0.4) % Nucleat RBC Rel Count 0.0 (0.00-0.1) % Eos # (Auto) 0.23 (0-0.5) x10^3/uL Immature Gran # (Auto) 0.05 H (0.00-0.03) x10^3u/L Absolute Lymphs (auto) 2.40 (1.0-4.6) x10^3/uL Absolute Monos (auto) 1.62 H (0.0-1.3) x10^3/uL Absolute Nucleated RBC 0.00 (0.00-0.01) x10^3u/L Lymphocytes % 17.1 L (24.0-44.0) % Monocytes % 11.6 (0.0-12.0) % Eosinophils % 1.6 (0.00-5.0) % Basophils % 0.6 (0.0-0.4) % Absolute Granulocytes 9.62 H (1.4-6.9) x10^3/uL Basophils # 0.09 (0-0.4) x10^3/uL PT 11.6 (9.4-12.5) SECONDS INR 1.10 (0.8-3.0) Sodium (137-145) mmol/L Potassium (3.5-5.1) mmol/L Chloride (98-107) mmol/L Carbon Dioxide (22-30) mmol/L Anion Gap (5-15) MEQ/L BUN (9-20) mg/dL Creatinine (0.66-1.25) mg/dL Estimated GFR ML/MIN Glucose (74-106) mg/dL Calcium (8.4-10.2) mg/dL Magnesium (1.6-2.3) mg/dL Total Bilirubin (0.2-1.3) mg/dL AST (17-59) U/L ALT (0-50) U/L Alkaline Phosphatase (38-126) U/L Troponin I 0.013 (0.000-0.034) ng/mL Serum Total Protein (6.3-8.2) g/dL Albumin (3.5-5.0) g/dL Slides for Path Review YES 02/06/22 Range/Units 14:25 WBC (4.0-10.5) x10^3/uL RBC (4.1-5.6) x10^6/uL Hgb (12.5-18.0) g/dL Hct (42-50) % MCV (78-100) fL MCH (26-32) pg MCHC (32-36) g/dL RDW (11.5-14.0) % Plt Count (150-450) x10^3/uL MPV (7.5-11.0) fL Gran % (36.0-66.0) % Immature Gran % (Auto) (0.00-0.4) % Nucleat RBC Rel Count (0.00-0.1) % Eos # (Auto) (0-0.5) x10^3/uL Immature Gran # (Auto) (0.00-0.03) x10^3u/L Absolute Lymphs (auto) (1.0-4.6) x10^3/uL Absolute Monos (auto) (0.0-1.3) x10^3/uL Absolute Nucleated RBC (0.00-0.01) x10^3u/L Lymphocytes % (24.0-44.0) % Monocytes % (0.0-12.0) % Eosinophils % (0.00-5.0) % Basophils % (0.0-0.4) % Absolute Granulocytes (1.4-6.9) x10^3/uL Basophils # (0-0.4) x10^3/uL PT (9.4-12.5) SECONDS INR (0.8-3.0) Sodium 138 (137-145) mmol/L Potassium 3.8 (3.5-5.1) mmol/L Chloride 98 (98-107) mmol/L Carbon Dioxide 32 H (22-30) mmol/L Anion Gap 11.9 (5-15) MEQ/L BUN 17 (9-20) mg/dL Creatinine 0.85 (0.66-1.25) mg/dL Estimated GFR > 60.0 ML/MIN Glucose 94 (74-106) mg/dL Calcium 8.9 (8.4-10.2) mg/dL Magnesium 1.7 (1.6-2.3) mg/dL Total Bilirubin 0.50 (0.2-1.3) mg/dL AST 22 (17-59) U/L ALT 19 (0-50) U/L Alkaline Phosphatase 76 (38-126) U/L Troponin I (0.000-0.034) ng/mL Serum Total Protein 6.8 (6.3-8.2) g/dL Albumin 3.9 (3.5-5.0) g/dL Slides for Path Review - Progress Progress: improved, re-examined Progress Note: 02/06/22 15:16 CAT scan of the head without contrast shows no acute intracranial abnormality. Clinically, the patient states that his headache is now significantly improved. 02/06/22 15:41 Medical decision making: This patient has hypertensive urgency. At this time his systolic blood pressure is now 187. Symptomatically he is improved. However, we will place him in observation on a monitored bed and give him a as needed dosing of hydralazine intravenously with parameters and monitor him in the hospital. I spoke with Dr. Campbell and he agrees we should place him in observation on a monitored bed. 02/06/22 15:42 Discussed with : Karen Counseled pt/family regarding: lab results, diagnosis, rad results - Departure Departure Disposition: Observation Clinical Impression: Hypertensive urgency Condition: Fair Critical Care Time: Yes Critical Care Time(excluding separately billable procedures): Critical 30-74 mins (40 minutes) Referrals: SILVIA CAMPBELL MD [Primary Care Provider] - Follow up/PCP as directed
[2022-02-06] MEDS ORDERED: APRESOLINE 20 MG/ML INJ IV ONE ×2 (14:27→15:06)
[2022-02-06] MEDS ORDERED: APRESOLINE 20 MG/ML INJ ONE ×2 (14:29→15:09)
[2022-02-06 14:35] LABS: Absolute Neutrophil Ct (ANC) 9.62 x10^3/uL (1.4-6.9); Basophil (Absolute #) 0.09 x10^3/uL (0-0.4); Eosinophil % 1.6 % (0.00-5.0); Eosinophil (Absolute #) 0.23 x10^3/uL (0-0.5); Hematocrit 44.3 % (42-50); Hemoglobin 14.2 g/dL (12.5-18.0); Lymphocytes % 17.1 % (24.0-44.0); Mean Cell Volume 93.9 fL (78-100); Mean Corpuscular Hemoglobin 30.1 pg (26-32); Mean Corpuscular Hgb Concent. 32.1 g/dL (32-36); Mean Platelet Volume 10.4 fL (7.5-11.0); Monocyte (Absolute #) 1.62 x10^3/uL (0.0-1.3); Monocytes % 11.6 % (0.0-12.0); Neutrophil % 68.7 % (36.0-66.0); Platelet Count 325 x10^3/uL (150-450); Red Blood Count 4.72 x10^6/uL (4.1-5.6); Red Cell Distribution Width 12.2 % (11.5-14.0)
[2022-02-06 14:54] LABS: INR 1.1 (0.8-3.0); PROTIME 11.6 SECONDS (9.4-12.5)
[2022-02-06 14:59] LABS: Slide Review 1 YES
[2022-02-06 15:01] LABS: ALBUMIN 3.9 g/dL (3.5-5.0); ALKALINE PHOSPHATASE 76 U/L (38-126); ANION GAP 11.9 MEQ/L (5-15); BLOOD UREA NITROGEN 17 mg/dL (9-20); CHLORIDE 98 mmol/L (98-107); Calcium 8.9 mg/dL (8.4-10.2); Carbon Dioxide 32 mmol/L (22-30); Creatinine 1 0.85 mg/dL (0.66-1.25); EST GLOMERULAR FILTRATION RATE > 60.0 ML/MIN; Glucose 94 mg/dL (74-106); MAGNESIUM 1.7 mg/dL (1.6-2.3); Potassium 3.8 mmol/L (3.5-5.1); SGOT/AST 22 U/L (17-59); SGPT/ALT 19 U/L (0-50); SODIUM 138 mmol/L (137-145); Total Protein 6.8 g/dL (6.3-8.2)
--- NOTE | 2022-02-06 15:02 | XRAY ---
Indication: Nausea and headaches. Multiple contiguous axial images obtained through the head without contrast. Comparison: None Age-appropriate global atrophy. No acute intracranial hemorrhage, abnormal extra-axial fluid collection, or mass effect. Fourth ventricle is midline without hydrocephalus. Murrell-white matter differentiation preserved. Bony calvarium intact. Visualized paranasal sinuses and mastoid air cells are clear. Impression: Negative CT head without contrast exam.
[2022-02-06] MEDS ORDERED: Zofran 4 MG/2 ML VIAL IV ONE (15:47)
[2022-02-06] MEDS ORDERED: MORPHINE SULFATE 2 MG INJ IV ONE (15:47)
[2022-02-06] MEDS ORDERED: Zofran 4 MG/2 ML VIAL ONE (15:53)
[2022-02-06] MEDS ORDERED: MORPHINE SULFATE 2 MG INJ ONE (15:54)
[2022-02-06 16:07] LABS: INFLUENZA A NEGATIVE (NEGATIVE); INFLUENZA B NEGATIVE (NEGATIVE); RESPIRATORY SYNCTIAL VIRUS NEGATIVE (Negative); SARS-CoV-2 Xpert Express NEGATIVE (NEGATIVE)
[2022-02-06] MEDS ORDERED: APRESOLINE 20 MG/ML INJ IV PRN (16:49)
[2022-02-06] MEDS ORDERED: MORPHINE SULFATE 4 MG INJ IV PRN (16:49)
[2022-02-06] MEDS ORDERED: Zofran 4 MG/2 ML VIAL IV PRN (16:49)
[2022-02-06 16:53] LABS: RBC 0-2 /HPF (0-2)
[2022-02-06] MEDS ORDERED: VENTOLIN COMMON CANISTER IH PRN (16:57)
[2022-02-06 17:04] LABS: Appearance CLEAR (CLEAR); Bilirubin NEGATIVE (NEGATIVE); Glucose NEGATIVE (NEGATIVE); Ketones NEGATIVE (NEGATIVE); Nitrite NEGATIVE (NEGATIVE); Protein,Urine Dip 100 (Negative); RBC NEGATIVE Ery/ul (0-5); Specific Gravity 1.015 (1.005-1.025); Urobilinogen 0.2 mg/dL (0-1)
[2022-02-06 17:05] LABS: Dipstick done @ ? MAIN LAB; Urine Cultured Indicated? NO
[2022-02-06] MEDS: Lantus Insulin SQ SCH (17:10)
[2022-02-06] MEDS ORDERED: MEDICATION INTERVENTION MC SCH (17:15)
[2022-02-06] MEDS ORDERED: NON-FORMULARY ITEM (Insulin Detemir [Levemir] 100 UNIT/ML Vial) SQ SCH (18:00)
[2022-02-06] MEDS: Advair Hfa 115/21 Common canister IH SCH (18:24)
[2022-02-06] MEDS: Cozaar 50 MG PO SCH (21:56)
[2022-02-06] MEDS: ZOCOR 20MG PO SCH (21:56)
[2022-02-06] MEDS: Coreg 3.125 MG PO SCH (21:56)
[2022-02-06] MEDS: CLONIDINE 0.1 MG TABLET PO SCH (21:56)
[2022-02-06] MEDS ORDERED: ATORVASTATIN CALCIUM PO SCH (22:00)
[2022-02-07] MEDS: TYLENOL 325 MG PO PRN (02:07)
[2022-02-07] MEDS ORDERED: APRESOLINE 20 MG/ML INJ IV ONE ×2 (04:48→19:01)
[2022-02-07 05:29] LABS: Absolute Neutrophil Ct (ANC) 8.76 x10^3/uL (1.4-6.9); Basophil (Absolute #) 0.07 x10^3/uL (0-0.4); Eosinophil % 2.4 % (0.00-5.0); Eosinophil (Absolute #) 0.29 x10^3/uL (0-0.5); Hematocrit 42.1 % (42-50); Hemoglobin 13.5 g/dL (12.5-18.0); Mean Cell Volume 92.5 fL (78-100); Mean Corpuscular Hemoglobin 29.7 pg (26-32); Mean Corpuscular Hgb Concent. 32.1 g/dL (32-36); Mean Platelet Volume 9.8 fL (7.5-11.0); Monocyte (Absolute #) 1.24 x10^3/uL (0.0-1.3); Monocytes % 10.2 % (0.0-12.0); Neutrophil % 72.3 % (36.0-66.0); Platelet Count 294 x10^3/uL (150-450); Red Blood Count 4.55 x10^6/uL (4.1-5.6); Red Cell Distribution Width 12.1 % (11.5-14.0); White Blood Count 12.1 x10^3/uL (4.0-10.5)
[2022-02-07 06:15] LABS: ALBUMIN 3.5 g/dL (3.5-5.0); ALKALINE PHOSPHATASE 66 U/L (38-126); ANION GAP 8.5 MEQ/L (5-15); BLOOD UREA NITROGEN 19 mg/dL (9-20); CHLORIDE 97 mmol/L (98-107); Calcium 9.1 mg/dL (8.4-10.2); Carbon Dioxide 32 mmol/L (22-30); Creatinine 1 0.91 mg/dL (0.66-1.25); EST GLOMERULAR FILTRATION RATE > 60.0 ML/MIN; Glucose 124 mg/dL (74-106); Potassium 3.7 mmol/L (3.5-5.1); SGOT/AST 18 U/L (17-59); SGPT/ALT 17 U/L (0-50); SODIUM 134 mmol/L (137-145); Total Protein 6.2 g/dL (6.3-8.2)
[2022-02-07] MEDS: CLONIDINE 0.1 MG TABLET PO SCH (06:49)
[2022-02-07] MEDS: Advair Hfa 115/21 Common canister IH SCH ×2 (07:00→19:10)
[2022-02-07] MEDS: Coreg 3.125 MG PO SCH (08:00)
[2022-02-07] MEDS: APRESOLINE 20 MG/ML INJ IV PRN ×3 (08:00→17:21)
[2022-02-07] MEDS: ECOTRIN 81 MG PO SCH (08:00)
[2022-02-07] MEDS: Cozaar 50 MG PO SCH ×2 (08:00→23:09)
[2022-02-07] MEDS ORDERED: NON-FORMULARY ITEM (Fluticasone/Umeclidin/Vilanter [Trelegy Ellipta 100-62.5-25] 1 EACH Bl IH SCH (10:00)
[2022-02-07] MEDS ORDERED: NON-FORMULARY ITEM (Amlodipine Besylate [Amlodipine Besylate] 10 MG Tablet) PO SCH (10:00)
[2022-02-07] MEDS ORDERED: NORVASC 5 MG PO SCH (10:00)
[2022-02-07] MEDS: TORAdol 30 mg Injection IV PRN ×2 (10:44→16:43)
[2022-02-07] MEDS: Zofran 4 MG/2 ML VIAL IV PRN ×2 (10:44→14:59)
[2022-02-07] MEDS: PROVENTIL 2.5 MG/3 ML NEB IH SCH ×4 (11:05→23:25)
[2022-02-07] MEDS: Apresoline 25 MG TABLET PO SCH ×3 (11:59→23:09)
--- NOTE | 2022-02-07 12:03 | PCM.HP ---
History of Present Illness - Chief Complaint Chief Complaint: Hypertensive urgency History of Present Illness: is a 71 year old male pt of Dr. Ross with HTN, DMII, hyperlipidemia, and COPD who was admitted through ER with AARON and hypertensive urgency. He was seen by Dr. Ross in office yesterday and sent over to ER. His AARON was 8-9/10 on admission. Yesterday he woke up feeling okay, then after a couple of hours had a AARON. He had an appointment scheduled with Dr. Ross at 2 pm and his AARON was very bad then. no chest pain. Has been having "cold sx" with wheezing and congestion. Overnight he required several doses of IV hydralazine. AARON is now 1-2/10. His BP have been in the 170s to [id number] since 7 a.m. In the last 2-3 weeks, his amlodipine was actually discontinued due to LE edema, and he was started on clonidine. He does not like the clonidine because sometimes it makes him feel dizzy and sleepy. Last night he did not sleep. - Review of Systems Respiratory: Short Of Breath (worse AGUIAR recently), Wheezing Abdominal/Gastrointestinal: Melena (recently - thought from eating blueberries. has never had EGD/colonoscopy.) Skin: Skin Lesions (has eczema and says he takes a medrol dose pack about once a month.) Medications & Allergies Home Medications: Home Medication List Albuterol Common Canister [Ventolin Common Canister] 1 puff IH QID PRN 06/06/19 [History Confirmed 02/06/22] Aspirin EC 81 mg [Ecotrin 81 mg] 81 mg PO DAILY 06/06/19 [History Confirmed 02/06/22] Atorvastatin Calcium 20 mg PO HS 06/06/19 [History Confirmed 02/06/22] Fluticasone/Umeclidin/Vilanter [Trelegy Ellipta 100-62.5-25] 1 puff IH DAILY 06/06/19 [History Confirmed 02/06/22] Insulin Detemir [Levemir] 30 unit SQ 1800 06/06/19 [History Confirmed 02/06/22] Losartan Potassium 50 mg PO BID 06/06/19 [History Confirmed 02/06/22] Amlodipine Besylate 10 mg PO DAILY 02/06/22 [History Confirmed 02/06/22] Carvedilol 3.125 mg [Coreg 3.125 MG] 3.125 mg PO BID 02/06/22 [History Confirmed 02/06/22] cloNIDine HCL [Clonidine HCl] 0.1 mg PO BID 02/06/22 [History Confirmed 02/06/22] Allergies/Adverse Reactions: Allergies Allergy/AdvReac Type Severity Reaction Status Date / Time Sulfa (Sulfonamide AdvReac Verified 02/06/22 14:27 Antibiotics) - Past Medical History Past Medical History: Yes Neurological History: No Pertinent History ENT History: Cataracts Cardiac History: Congestive Heart Failure, High Cholesterol, Hypertension Respiratory History: COPD Endocrine Medical History: Diabetes Type II Musculoskelatal History: No Pertinent History GI Medical History: Hernia History: No Pertinent History Pyscho-Social History: No Pertinent History Male Reproductive Disorders: No Pertinent History - Past Surgical History Past Surgical History: Yes Neuro Surgical History: No Pertinent History Cardiac History: No Pertinent History Respiratory Surgery: No Pertinent History GI Surgical History: Hernia Repair Genitourinary Surgical Hx: No Pertinent History Musculskeletal Surgical Hx: No Pertinent History Male Surgical History: No Pertinent History Other Surgical History: cataracts, hernia - Social History Smoking Status: Former smoker Exposure to second hand smoke: No Alcohol: None Drug Use: none - Physical Exam Vital Signs: Vital Signs - 24 hr Temp Pulse Resp BP Pulse Ox 02/07/22 11:55 179/80 02/07/22 11:23 97.8 F 57 L 18 200/83 92 L 02/07/22 11:05 57 L 18 92 L 02/07/22 09:15 179/80 02/07/22 08:48 65 192/79 02/07/22 07:32 97.8 F 52 L 14 202/91 93 L 02/07/22 07:00 58 L 18 95 02/07/22 06:48 200/90 02/07/22 04:30 60 210/88 02/07/22 04:00 97.7 F 51 L 18 191/79 91 L 02/06/22 23:39 97.4 F 56 L 18 174/73 96 02/06/22 19:08 97.5 F 67 20 165/67 95 02/06/22 18:24 64 18 94 L 02/06/22 17:12 54 L 18 95 02/06/22 17:00 97.1 F 54 L 16 196/84 95 02/06/22 16:51 97.1 F 54 L 16 196/84 02/06/22 16:49 97 02/06/22 16:03 52 L 16 191/73 97 02/06/22 15:10 52 L 16 214/87 96 02/06/22 14:43 54 L 18 224/96 98 02/06/22 14:16 264/104 Results - Labs Lab/Micro Results: Lab Results-Last 24 Hours 02/06/22 02/06/22 02/06/22 Range/Units 14:25 14:25 14:25 WBC (4.0-10.5) x10^3/uL RBC (4.1-5.6) x10^6/uL Hgb (12.5-18.0) g/dL Hct (42-50) % MCV (78-100) fL MCH (26-32) pg MCHC (32-36) g/dL RDW (11.5-14.0) % Plt Count (150-450) x10^3/uL MPV (7.5-11.0) fL Gran % (36.0-66.0) % Immature Gran % (Auto) (0.00-0.4) % Nucleat RBC Rel Count (0.00-0.1) % Eos # (Auto) (0-0.5) x10^3/uL Immature Gran # (Auto) (0.00-0.03) x10^3u/L Absolute Lymphs (auto) (1.0-4.6) x10^3/uL Absolute Monos (auto) (0.0-1.3) x10^3/uL Absolute Nucleated RBC (0.00-0.01) x10^3u/L Lymphocytes % (24.0-44.0) % Monocytes % (0.0-12.0) % Eosinophils % (0.00-5.0) % Basophils % (0.0-0.4) % Absolute Granulocytes (1.4-6.9) x10^3/uL Basophils # (0-0.4) x10^3/uL PT 11.6 (9.4-12.5) SECONDS INR 1.10 (0.8-3.0) Sodium 138 (137-145) mmol/L Potassium 3.8 (3.5-5.1) mmol/L Chloride 98 (98-107) mmol/L Carbon Dioxide 32 H (22-30) mmol/L Anion Gap 11.9 (5-15) MEQ/L BUN 17 (9-20) mg/dL Creatinine 0.85 (0.66-1.25) mg/dL Estimated GFR > 60.0 ML/MIN Glucose 94 (74-106) mg/dL POC Glucometer (74 to 106) mg/dL Calcium 8.9 (8.4-10.2) mg/dL Magnesium 1.7 (1.6-2.3) mg/dL Total Bilirubin 0.50 (0.2-1.3) mg/dL AST 22 (17-59) U/L ALT 19 (0-50) U/L Alkaline Phosphatase 76 (38-126) U/L Troponin I 0.013 (0.000-0.034) ng/mL Serum Total Protein 6.8 (6.3-8.2) g/dL Albumin 3.9 (3.5-5.0) g/dL Urinalys Dipstick Clnc Urine Color (YELLOW) Urine Appearance (CLEAR) Urine pH (5-6) Ur Specific Chana (1.005-1.025) POC Urine Protein Conf (Negative) Urine Ketones (NEGATIVE) Urine Nitrite (NEGATIVE) Urine Bilirubin (NEGATIVE) Urine Urobilinogen (0-1) mg/dL Urine Leukocytes (NEGATIVE) Urine WBC (Auto) (0-5) /HPF Urine RBC (Auto) (0-2) /HPF U Epithel Cells (Auto) Urine Bacteria (Auto) Urine RBC (0-5) Bandar/ul Ur Culture Indicated? Urine Glucose (NEGATIVE) mg/dL Influenza Type A Ag (NEGATIVE) Influenza Type B Ag (NEGATIVE) RSV (PCR) (Negative) SARS-CoV-2 (PCR) (NEGATIVE) Slides for Path Review 02/06/22 02/06/22 02/06/22 Range/Units 14:26 15:20 19:00 WBC 14.0 H (4.0-10.5) x10^3/uL RBC 4.72 (4.1-5.6) x10^6/uL Hgb 14.2 (12.5-18.0) g/dL Hct 44.3 (42-50) % MCV 93.9 (78-100) fL MCH 30.1 (26-32) pg MCHC 32.1 (32-36) g/dL RDW 12.2 (11.5-14.0) % Plt Count 325 (150-450) x10^3/uL MPV 10.4 (7.5-11.0) fL Gran % 68.7 H (36.0-66.0) % Immature Gran % (Auto) 0.4 (0.00-0.4) % Nucleat RBC Rel Count 0.0 (0.00-0.1) % Eos # (Auto) 0.23 (0-0.5) x10^3/uL Immature Gran # (Auto) 0.05 H (0.00-0.03) x10^3u/L Absolute Lymphs (auto) 2.40 (1.0-4.6) x10^3/uL Absolute Monos (auto) 1.62 H (0.0-1.3) x10^3/uL Absolute Nucleated RBC 0.00 (0.00-0.01) x10^3u/L Lymphocytes % 17.1 L (24.0-44.0) % Monocytes % 11.6 (0.0-12.0) % Eosinophils % 1.6 (0.00-5.0) % Basophils % 0.6 (0.0-0.4) % Absolute Granulocytes 9.62 H (1.4-6.9) x10^3/uL Basophils # 0.09 (0-0.4) x10^3/uL PT (9.4-12.5) SECONDS INR (0.8-3.0) Sodium (137-145) mmol/L Potassium (3.5-5.1) mmol/L Chloride (98-107) mmol/L Carbon Dioxide (22-30) mmol/L Anion Gap (5-15) MEQ/L BUN (9-20) mg/dL Creatinine (0.66-1.25) mg/dL Estimated GFR ML/MIN Glucose (74-106) mg/dL POC Glucometer (74 to 106) mg/dL Calcium (8.4-10.2) mg/dL Magnesium (1.6-2.3) mg/dL Total Bilirubin (0.2-1.3) mg/dL AST (17-59) U/L ALT (0-50) U/L Alkaline Phosphatase (38-126) U/L Troponin I 0.019 (0.000-0.034) ng/mL Serum Total Protein (6.3-8.2) g/dL Albumin (3.5-5.0) g/dL Urinalys Dipstick Clnc Urine Color (YELLOW) Urine Appearance (CLEAR) Urine pH (5-6) Ur Specific Chana (1.005-1.025) POC Urine Protein Conf (Negative) Urine Ketones (NEGATIVE) Urine Nitrite (NEGATIVE) Urine Bilirubin (NEGATIVE) Urine Urobilinogen (0-1) mg/dL Urine Leukocytes (NEGATIVE) Urine WBC (Auto) (0-5) /HPF Urine RBC (Auto) (0-2) /HPF U Epithel Cells (Auto) Urine Bacteria (Auto) Urine RBC (0-5) Bandar/ul Ur Culture Indicated? Urine Glucose (NEGATIVE) mg/dL Influenza Type A Ag NEGATIVE (NEGATIVE) Influenza Type B Ag NEGATIVE (NEGATIVE) RSV (PCR) NEGATIVE (Negative) SARS-CoV-2 (PCR) NEGATIVE (NEGATIVE) Slides for Path Review YES 02/06/22 02/06/22 02/06/22 Range/Units 20:55 23:30 Unknown WBC (4.0-10.5) x10^3/uL RBC (4.1-5.6) x10^6/uL Hgb (12.5-18.0) g/dL Hct (42-50) % MCV (78-100) fL MCH (26-32) pg MCHC (32-36) g/dL RDW (11.5-14.0) % Plt Count (150-450) x10^3/uL MPV (7.5-11.0) fL Gran % (36.0-66.0) % Immature Gran % (Auto) (0.00-0.4) % Nucleat RBC Rel Count (0.00-0.1) % Eos # (Auto) (0-0.5) x10^3/uL Immature Gran # (Auto) (0.00-0.03) x10^3u/L Absolute Lymphs (auto) (1.0-4.6) x10^3/uL Absolute Monos (auto) (0.0-1.3) x10^3/uL Absolute Nucleated RBC (0.00-0.01) x10^3u/L Lymphocytes % (24.0-44.0) % Monocytes % (0.0-12.0) % Eosinophils % (0.00-5.0) % Basophils % (0.0-0.4) % Absolute Granulocytes (1.4-6.9) x10^3/uL Basophils # (0-0.4) x10^3/uL PT (9.4-12.5) SECONDS INR (0.8-3.0) Sodium (137-145) mmol/L Potassium (3.5-5.1) mmol/L Chloride (98-107) mmol/L Carbon Dioxide (22-30) mmol/L Anion Gap (5-15) MEQ/L BUN (9-20) mg/dL Creatinine (0.66-1.25) mg/dL Estimated GFR ML/MIN Glucose (74-106) mg/dL POC Glucometer 175 H (74 to 106) mg/dL Calcium (8.4-10.2) mg/dL Magnesium (1.6-2.3) mg/dL Total Bilirubin (0.2-1.3) mg/dL AST (17-59) U/L ALT (0-50) U/L Alkaline Phosphatase (38-126) U/L Troponin I 0.045 H* (0.000-0.034) ng/mL Serum Total Protein (6.3-8.2) g/dL Albumin (3.5-5.0) g/dL Urinalys Dipstick Clnc MAIN LAB Urine Color YELLOW (YELLOW) Urine Appearance CLEAR (CLEAR) Urine pH 7.0 (5-6) Ur Specific Chana 1.015 (1.005-1.025) POC Urine Protein Conf 100 A (Negative) Urine Ketones NEGATIVE (NEGATIVE) Urine Nitrite NEGATIVE (NEGATIVE) Urine Bilirubin NEGATIVE (NEGATIVE) Urine Urobilinogen 0.2 (0-1) mg/dL Urine Leukocytes NEGATIVE (NEGATIVE) Urine WBC (Auto) NONE (0-5) /HPF Urine RBC (Auto) 0-2 (0-2) /HPF U Epithel Cells (Auto) Not Reportable Urine Bacteria (Auto) Not Reportable Urine RBC NEGATIVE (0-5) Bandar/ul Ur Culture Indicated? NO Urine Glucose NEGATIVE (NEGATIVE) mg/dL Influenza Type A Ag (NEGATIVE) Influenza Type B Ag (NEGATIVE) RSV (PCR) (Negative) SARS-CoV-2 (PCR) (NEGATIVE) Slides for Path Review 02/07/22 02/07/22 02/07/22 Range/Units 05:00 05:00 07:22 WBC 12.1 H (4.0-10.5) x10^3/uL RBC 4.55 (4.1-5.6) x10^6/uL Hgb 13.5 (12.5-18.0) g/dL Hct 42.1 (42-50) % MCV 92.5 (78-100) fL MCH 29.7 (26-32) pg MCHC 32.1 (32-36) g/dL RDW 12.1 (11.5-14.0) % Plt Count 294 (150-450) x10^3/uL MPV 9.8 (7.5-11.0) fL Gran % 72.3 H (36.0-66.0) % Immature Gran % (Auto) 0.5 H (0.00-0.4) % Nucleat RBC Rel Count 0.0 (0.00-0.1) % Eos # (Auto) 0.29 (0-0.5) x10^3/uL Immature Gran # (Auto) 0.06 H (0.00-0.03) x10^3u/L Absolute Lymphs (auto) 1.70 (1.0-4.6) x10^3/uL Absolute Monos (auto) 1.24 (0.0-1.3) x10^3/uL Absolute Nucleated RBC 0.00 (0.00-0.01) x10^3u/L Lymphocytes % 14.0 L (24.0-44.0) % Monocytes % 10.2 (0.0-12.0) % Eosinophils % 2.4 (0.00-5.0) % Basophils % 0.6 (0.0-0.4) % Absolute Granulocytes 8.76 H (1.4-6.9) x10^3/uL Basophils # 0.07 (0-0.4) x10^3/uL PT (9.4-12.5) SECONDS INR (0.8-3.0) Sodium 134 L (137-145) mmol/L Potassium 3.7 (3.5-5.1) mmol/L Chloride 97 L (98-107) mmol/L Carbon Dioxide 32 H (22-30) mmol/L Anion Gap 8.5 (5-15) MEQ/L BUN 19 (9-20) mg/dL Creatinine 0.91 (0.66-1.25) mg/dL Estimated GFR > 60.0 ML/MIN Glucose 124 H (74-106) mg/dL POC Glucometer 121 H (74 to 106) mg/dL Calcium 9.1 (8.4-10.2) mg/dL Magnesium (1.6-2.3) mg/dL Total Bilirubin 0.70 (0.2-1.3) mg/dL AST 18 (17-59) U/L ALT 17 (0-50) U/L Alkaline Phosphatase 66 (38-126) U/L Troponin I (0.000-0.034) ng/mL Serum Total Protein 6.2 L (6.3-8.2) g/dL Albumin 3.5 (3.5-5.0) g/dL Urinalys Dipstick Clnc Urine Color (YELLOW) Urine Appearance (CLEAR) Urine pH (5-6) Ur Specific Chana (1.005-1.025) POC Urine Protein Conf (Negative) Urine Ketones (NEGATIVE) Urine Nitrite (NEGATIVE) Urine Bilirubin (NEGATIVE) Urine Urobilinogen (0-1) mg/dL Urine Leukocytes (NEGATIVE) Urine WBC (Auto) (0-5) /HPF Urine RBC (Auto) (0-2) /HPF U Epithel Cells (Auto) Urine Bacteria (Auto) Urine RBC (0-5) Bandar/ul Ur Culture Indicated? Urine Glucose (NEGATIVE) mg/dL Influenza Type A Ag (NEGATIVE) Influenza Type B Ag (NEGATIVE) RSV (PCR) (Negative) SARS-CoV-2 (PCR) (NEGATIVE) Slides for Path Review 02/07/22 Range/Units 11:09 WBC (4.0-10.5) x10^3/uL RBC (4.1-5.6) x10^6/uL Hgb (12.5-18.0) g/dL Hct (42-50) % MCV (78-100) fL MCH (26-32) pg MCHC (32-36) g/dL RDW (11.5-14.0) % Plt Count (150-450) x10^3/uL MPV (7.5-11.0) fL Gran % (36.0-66.0) % Immature Gran % (Auto) (0.00-0.4) % Nucleat RBC Rel Count (0.00-0.1) % Eos # (Auto) (0-0.5) x10^3/uL Immature Gran # (Auto) (0.00-0.03) x10^3u/L Absolute Lymphs (auto) (1.0-4.6) x10^3/uL Absolute Monos (auto) (0.0-1.3) x10^3/uL Absolute Nucleated RBC (0.00-0.01) x10^3u/L Lymphocytes % (24.0-44.0) % Monocytes % (0.0-12.0) % Eosinophils % (0.00-5.0) % Basophils % (0.0-0.4) % Absolute Granulocytes (1.4-6.9) x10^3/uL Basophils # (0-0.4) x10^3/uL PT (9.4-12.5) SECONDS INR (0.8-3.0) Sodium (137-145) mmol/L Potassium (3.5-5.1) mmol/L Chloride (98-107) mmol/L Carbon Dioxide (22-30) mmol/L Anion Gap (5-15) MEQ/L BUN (9-20) mg/dL Creatinine (0.66-1.25) mg/dL Estimated GFR ML/MIN Glucose (74-106) mg/dL POC Glucometer 178 H (74 to 106) mg/dL Calcium (8.4-10.2) mg/dL Magnesium (1.6-2.3) mg/dL Total Bilirubin (0.2-1.3) mg/dL AST (17-59) U/L ALT (0-50) U/L Alkaline Phosphatase (38-126) U/L Troponin I (0.000-0.034) ng/mL Serum Total Protein (6.3-8.2) g/dL Albumin (3.5-5.0) g/dL Urinalys Dipstick Clnc Urine Color (YELLOW) Urine Appearance (CLEAR) Urine pH (5-6) Ur Specific Chana (1.005-1.025) POC Urine Protein Conf (Negative) Urine Ketones (NEGATIVE) Urine Nitrite (NEGATIVE) Urine Bilirubin (NEGATIVE) Urine Urobilinogen (0-1) mg/dL Urine Leukocytes (NEGATIVE) Urine WBC (Auto) (0-5) /HPF Urine RBC (Auto) (0-2) /HPF U Epithel Cells (Auto) Urine Bacteria (Auto) Urine RBC (0-5) Bandar/ul Ur Culture Indicated? Urine Glucose (NEGATIVE) mg/dL Influenza Type A Ag (NEGATIVE) Influenza Type B Ag (NEGATIVE) RSV (PCR) (Negative) SARS-CoV-2 (PCR) (NEGATIVE) Slides for Path Review Accuchecks Date 02/07/22 Date 02/07/22 Time 11:09 - Radiology Impressions Radiology Exams & Impressions: Radiology Procedures Category Date Time Status HEAD WITHOUT CONTRAST [CT] Stat Exams 02/06/22 14:26 Completed - Other Procedures and Tests Respiratory Therapy 02/06/22 17:11 Respiratory MDI BID Respiratory Therapy Assessment DAILY Assessment/Plan (1) Hypertensive urgency Current Visit: Yes Status: Acute Assessment & Plan: Will try scheduling hydralazine instead of prn (schedule QID). Sounds like clonidine may actually be causing some hypotension at home. Unsure why this episode of hypertensio started. Code(s): I16.0 - HYPERTENSIVE URGENCY (2) Headache Current Visit: Yes Status: Acute Qualifiers: Headache type: unspecified Headache chronicity pattern: acute headache Intractability: not intractable Qualified Code(s): R51.9 - Headache, unspecified Assessment & Plan: much improved. Code(s): R51.9 - HEADACHE, UNSPECIFIED (3) Elevated troponin Current Visit: Yes Status: Acute Assessment & Plan: mildly elevated, likely due to strain on heart from elevated BP. Code(s): R77.8 - OTHER SPECIFIED ABNORMALITIES OF PLASMA PROTEINS (4) Melena Current Visit: Yes Status: Acute Assessment & Plan: fecal occult blood ordered. Has never had EGD and colonoscopy. Hgb is nl. Code(s): K92.1 - MELENA (5) Leukocytosis Current Visit: Yes Status: Acute Qualifiers: Leukocytosis type: unspecified Qualified Code(s): D72.829 - Elevated white blood cell count, unspecified Assessment & Plan: May have been reactive. Decreased from at admission. Will recheck in the morning. Does have some increased wheezing; will check CXR. Code(s): D72.829 - ELEVATED WHITE BLOOD CELL COUNT, UNSPECIFIED (6) COPD (chronic obstructive pulmonary disease) with acute bronchitis Current Visit: No Status: Chronic Assessment & Plan: add nebs Code(s): J44.0 - CHR OBSTRUCTIVE PULMON DISEASE WITH (ACUTE) LOWER RESP INFCT; J20.9 - ACUTE BRONCHITIS, UNSPECIFIED
[2022-02-07] MEDS ORDERED: Ativan 0.5 MG PO PRN (12:08)
--- NOTE | 2022-02-07 17:22 | XRAY ---
Indication: Wheezing. History right lung cancer with lobectomy. Comparison: June 06, 2021 PA/lateral chest again hyperinflated with stable right lung post surgical changes and volume loss. New minimal left base subsegmental atelectasis/scarring. Remaining heart and lungs unremarkable. Bony thorax intact again with mild degenerative changes. Impression: Continued nonacute hyperinflated chest with chronic features. Comment: Preliminary interpretation made by [facility]. No critical discrepancy.
[2022-02-07] MEDS ORDERED: CLONIDINE 0.1 MG TABLET PO ONE (17:33)
[2022-02-07] MEDS ORDERED: XYLOCAINE VISCOUS 2% 15 ML CUP ONE (17:38)
[2022-02-07] MEDS ORDERED: MAALOX ES 30 ML UNIT DOSE ONE (17:38)
[2022-02-07] MEDS ORDERED: GI COCKTAIL 45 ML (Maalox/Lidocaine) PO ONE (17:40)
[2022-02-07] MEDS: ENOXAPARIN SODIUM SQ SCH (19:09)
[2022-02-07] MEDS: Lantus Insulin SQ SCH (19:23)
[2022-02-07] MEDS ORDERED: DIOVAN 80 MG PO ONE (20:00)
[2022-02-07] MEDS ORDERED: NORVASC 5 MG PO ONE (20:00)
[2022-02-07] MEDS: COREG 12.5 MG PO SCH ×2 (21:10→22:14)
[2022-02-07] MEDS ORDERED: Pepcid 20 MG VIAL IV ONE (23:10)
[2022-02-07] MEDS: ZOCOR 20MG PO SCH ×2 (23:18→23:30)
[2022-02-08] MEDS: CLONIDINE 0.1 MG TABLET PO SCH ×3 (01:20→21:49)
[2022-02-08] MEDS: PROVENTIL 2.5 MG/3 ML NEB IH SCH ×3 (03:00→10:55)
[2022-02-08] MEDS: APRESOLINE 20 MG/ML INJ IV PRN (04:21)
[2022-02-08 04:39] LABS: Absolute Neutrophil Ct (ANC) 8.68 x10^3/uL (1.4-6.9); Basophil (Absolute #) 0.05 x10^3/uL (0-0.4); Eosinophil % 0.6 % (0.00-5.0); Eosinophil (Absolute #) 0.07 x10^3/uL (0-0.5); Hematocrit 40.2 % (42-50); Hemoglobin 13.2 g/dL (12.5-18.0); Lymphocyte (Absolute #) 1.36 x10^3/uL (1.0-4.6); Lymphocytes % 11.9 % (24.0-44.0); Mean Cell Volume 92.4 fL (78-100); Mean Corpuscular Hemoglobin 30.3 pg (26-32); Mean Corpuscular Hgb Concent. 32.8 g/dL (32-36); Mean Platelet Volume 10.3 fL (7.5-11.0); Monocyte (Absolute #) 1.21 x10^3/uL (0.0-1.3); Monocytes % 10.6 % (0.0-12.0); Neutrophil % 76.1 % (36.0-66.0); Platelet Count 288 x10^3/uL (150-450); Red Blood Count 4.35 x10^6/uL (4.1-5.6); Red Cell Distribution Width 12.2 % (11.5-14.0); White Blood Count 11.4 x10^3/uL (4.0-10.5)
[2022-02-08 05:02] LABS: ANION GAP 10.6 MEQ/L (5-15); BLOOD UREA NITROGEN 27 mg/dL (9-20); CHLORIDE 93 mmol/L (98-107); Calcium 9.2 mg/dL (8.4-10.2); Carbon Dioxide 32 mmol/L (22-30); Creatinine 1 0.97 mg/dL (0.66-1.25); EST GLOMERULAR FILTRATION RATE > 60.0 ML/MIN; Glucose 153 mg/dL (74-106); Potassium 4.2 mmol/L (3.5-5.1); SODIUM 131 mmol/L (137-145)
[2022-02-08] MEDS: Advair Hfa 115/21 Common canister IH SCH (07:09)
[2022-02-08] MEDS: Apresoline 25 MG TABLET PO SCH ×4 (10:00→21:49)
[2022-02-08] MEDS: ECOTRIN 81 MG PO SCH (10:00)
[2022-02-08] MEDS: COREG 12.5 MG PO SCH ×2 (10:00→21:49)
[2022-02-08] MEDS: Pepcid 20 MG PO SCH ×2 (10:00→21:49)
[2022-02-08] MEDS: Cozaar 50 MG PO SCH (10:01)
[2022-02-08] MEDS: ENOXAPARIN SODIUM SQ SCH (10:05)
[2022-02-08] MEDS: Zofran 4 MG/2 ML VIAL IV PRN (10:12)
[2022-02-08] MEDS: NORVASC 5 MG PO SCH (13:40)
[2022-02-08] MEDS: DIOVAN 80 MG PO SCH (13:40)
--- NOTE | 2022-02-08 17:01 | PCM.NOTE ---
Date and Time: 02/08/221655 Subjective Assessment: Last night pt continued to have very high BPs, > 200 systolic, along with AARON and not feeling well (nauseated and vomiting). I spoke with Dr. Minh Cummins (on for Dr. Marquez) - had given pt lovenox and moved to ICU for potential nitro drip. Instead, we gave him another dose of IV hydralazine, then increased po coreg to 12.5m po BID (first dose then), then in 30 min gave amlodipine 5mg, then in 30 min 160mg valsartan (d/c'd losartan). Serial troponins were done and EKG repeated x 2; troponin intially up to 0.351 then trended down. Today he was feeling better, less nauseated. BP mostly in 140s-160s. At the time of my exam he had an automatic BP of 204 systolic, but he was moving; upon repeat manually by RN,was 188/96. He said the Cp he had felt like epigastric type n/v related pain. He has been a little dizzy. - Review of Systems Constitutional: No Fever Abdominal/Gastrointestinal: Nausea, Vomiting Neurological: Headache Objective Exam General Appearance: no apparent distress, alert (sitting in chair) Neurologic Exam: oriented x 3, cooperative Skin Exam: normal color, warm, dry, No rash Eye Exam: eyes nml inspection Ears, Nose, Throat Exam: moist mucous membranes Neck Exam: normal inspection Respiratory Exam: normal breath sounds, lungs clear, wheezing (very faint scattered wheeze), No crackles/rales, No rhonchi Cardiovascular Exam: regular rate/rhythm, normal heart sounds, No murmur Gastrointestinal/Abdomen Exam: soft, normal bowel sounds Extremity Exam: normal inspection Back Exam: normal inspection, No rash OBJECTIVE DATA Vital Signs: Vital Signs - 24 hr Temp Pulse Resp BP Pulse Ox 02/08/22 14:00 68 16 152/69 02/08/22 12:00 74 19 136/49 94 L 02/08/22 11:00 98 F 69 24 130/67 95 02/08/22 10:55 62 16 97 02/08/22 10:00 71 15 156/64 95 02/08/22 09:00 70 21 200/86 95 02/08/22 08:00 97.1 F 61 17 194/109 96 02/08/22 06:59 70 20 95 02/08/22 06:00 56 L 169/54 02/08/22 05:00 58 L 14 164/78 97 02/08/22 04:42 65 173/77 02/08/22 04:00 61 16 195/94 97 02/08/22 03:00 65 16 156/62 95 02/08/22 01:54 EST 69 16 139/50 96 02/08/22 01:00 EST 64 14 128/54 94 L 02/08/22 01:00 EDT 68 17 166/78 95 02/08/22 00:01 62 02/08/22 00:00 72 16 159/68 98 02/07/22 23:00 75 18 147/60 96 02/07/22 22:00 64 16 145/57 94 L 02/07/22 21:37 73 177/68 02/07/22 21:00 78 180/73 02/07/22 20:30 73 182/73 02/07/22 19:56 71 16 164/69 93 L 02/07/22 19:08 70 19 97 02/07/22 19:00 98.6 F 77 19 146/83 98 02/07/22 18:30 98.2 F 71 20 182/78 94 L Pain Assessment - Last Documented Pain Intensity 4 Pain Scale Used 0-10 Pain Scale Intake and Output: Intake & Output 02/06/22 02/07/22 02/08/22 02/09/22 12:59 12:59 11:59 11:59 Intake Total Output Total Balance Weight Lab Results: Lab Results-Last 24 Hours 02/07/22 02/07/22 02/07/22 Range/Units 18:08 21:43 21:56 WBC (4.0-10.5) x10^3/uL RBC (4.1-5.6) x10^6/uL Hgb (12.5-18.0) g/dL Hct (42-50) % MCV (78-100) fL MCH (26-32) pg MCHC (32-36) g/dL RDW (11.5-14.0) % Plt Count (150-450) x10^3/uL MPV (7.5-11.0) fL Gran % (36.0-66.0) % Immature Gran % (Auto) (0.00-0.4) % Nucleat RBC Rel Count (0.00-0.1) % Eos # (Auto) (0-0.5) x10^3/uL Immature Gran # (Auto) (0.00-0.03) x10^3u/L Absolute Lymphs (auto) (1.0-4.6) x10^3/uL Absolute Monos (auto) (0.0-1.3) x10^3/uL Absolute Nucleated RBC (0.00-0.01) x10^3u/L Lymphocytes % (24.0-44.0) % Monocytes % (0.0-12.0) % Eosinophils % (0.00-5.0) % Basophils % (0.0-0.4) % Absolute Granulocytes (1.4-6.9) x10^3/uL Basophils # (0-0.4) x10^3/uL Sodium (137-145) mmol/L Potassium (3.5-5.1) mmol/L Chloride (98-107) mmol/L Carbon Dioxide (22-30) mmol/L Anion Gap (5-15) MEQ/L BUN (9-20) mg/dL Creatinine (0.66-1.25) mg/dL Estimated GFR ML/MIN Glucose (74-106) mg/dL POC Glucometer 171 H (74 to 106) mg/dL Calcium (8.4-10.2) mg/dL Troponin I 0.232 H* 0.351 H* (0.000-0.034) ng/mL 02/08/22 02/08/22 02/08/22 Range/Units 01:22 EST 03:20 03:20 WBC 11.4 H (4.0-10.5) x10^3/uL RBC 4.35 (4.1-5.6) x10^6/uL Hgb 13.2 (12.5-18.0) g/dL Hct 40.2 L (42-50) % MCV 92.4 (78-100) fL MCH 30.3 (26-32) pg MCHC 32.8 (32-36) g/dL RDW 12.2 (11.5-14.0) % Plt Count 288 (150-450) x10^3/uL MPV 10.3 (7.5-11.0) fL Gran % 76.1 H (36.0-66.0) % Immature Gran % (Auto) 0.4 (0.00-0.4) % Nucleat RBC Rel Count 0.0 (0.00-0.1) % Eos # (Auto) 0.07 (0-0.5) x10^3/uL Immature Gran # (Auto) 0.05 H (0.00-0.03) x10^3u/L Absolute Lymphs (auto) 1.36 (1.0-4.6) x10^3/uL Absolute Monos (auto) 1.21 (0.0-1.3) x10^3/uL Absolute Nucleated RBC 0.00 (0.00-0.01) x10^3u/L Lymphocytes % 11.9 L (24.0-44.0) % Monocytes % 10.6 (0.0-12.0) % Eosinophils % 0.6 (0.00-5.0) % Basophils % 0.4 (0.0-0.4) % Absolute Granulocytes 8.68 H (1.4-6.9) x10^3/uL Basophils # 0.05 (0-0.4) x10^3/uL Sodium 131 L (137-145) mmol/L Potassium 4.2 (3.5-5.1) mmol/L Chloride 93 L (98-107) mmol/L Carbon Dioxide 32 H (22-30) mmol/L Anion Gap 10.6 (5-15) MEQ/L BUN 27 H (9-20) mg/dL Creatinine 0.97 (0.66-1.25) mg/dL Estimated GFR > 60.0 ML/MIN Glucose 153 H (74-106) mg/dL POC Glucometer (74 to 106) mg/dL Calcium 9.2 (8.4-10.2) mg/dL Troponin I 0.323 H* (0.000-0.034) ng/mL 02/08/22 02/08/22 02/08/22 Range/Units 03:30 07:22 11:28 WBC (4.0-10.5) x10^3/uL RBC (4.1-5.6) x10^6/uL Hgb (12.5-18.0) g/dL Hct (42-50) % MCV (78-100) fL MCH (26-32) pg MCHC (32-36) g/dL RDW (11.5-14.0) % Plt Count (150-450) x10^3/uL MPV (7.5-11.0) fL Gran % (36.0-66.0) % Immature Gran % (Auto) (0.00-0.4) % Nucleat RBC Rel Count (0.00-0.1) % Eos # (Auto) (0-0.5) x10^3/uL Immature Gran # (Auto) (0.00-0.03) x10^3u/L Absolute Lymphs (auto) (1.0-4.6) x10^3/uL Absolute Monos (auto) (0.0-1.3) x10^3/uL Absolute Nucleated RBC (0.00-0.01) x10^3u/L Lymphocytes % (24.0-44.0) % Monocytes % (0.0-12.0) % Eosinophils % (0.00-5.0) % Basophils % (0.0-0.4) % Absolute Granulocytes (1.4-6.9) x10^3/uL Basophils # (0-0.4) x10^3/uL Sodium (137-145) mmol/L Potassium (3.5-5.1) mmol/L Chloride (98-107) mmol/L Carbon Dioxide (22-30) mmol/L Anion Gap (5-15) MEQ/L BUN (9-20) mg/dL Creatinine (0.66-1.25) mg/dL Estimated GFR ML/MIN Glucose (74-106) mg/dL POC Glucometer 134 H 126 H (74 to 106) mg/dL Calcium (8.4-10.2) mg/dL Troponin I 0.284 H* (0.000-0.034) ng/mL 02/08/22 Range/Units 16:48 WBC (4.0-10.5) x10^3/uL RBC (4.1-5.6) x10^6/uL Hgb (12.5-18.0) g/dL Hct (42-50) % MCV (78-100) fL MCH (26-32) pg MCHC (32-36) g/dL RDW (11.5-14.0) % Plt Count (150-450) x10^3/uL MPV (7.5-11.0) fL Gran % (36.0-66.0) % Immature Gran % (Auto) (0.00-0.4) % Nucleat RBC Rel Count (0.00-0.1) % Eos # (Auto) (0-0.5) x10^3/uL Immature Gran # (Auto) (0.00-0.03) x10^3u/L Absolute Lymphs (auto) (1.0-4.6) x10^3/uL Absolute Monos (auto) (0.0-1.3) x10^3/uL Absolute Nucleated RBC (0.00-0.01) x10^3u/L Lymphocytes % (24.0-44.0) % Monocytes % (0.0-12.0) % Eosinophils % (0.00-5.0) % Basophils % (0.0-0.4) % Absolute Granulocytes (1.4-6.9) x10^3/uL Basophils # (0-0.4) x10^3/uL Sodium (137-145) mmol/L Potassium (3.5-5.1) mmol/L Chloride (98-107) mmol/L Carbon Dioxide (22-30) mmol/L Anion Gap (5-15) MEQ/L BUN (9-20) mg/dL Creatinine (0.66-1.25) mg/dL Estimated GFR ML/MIN Glucose (74-106) mg/dL POC Glucometer 112 H (74 to 106) mg/dL Calcium (8.4-10.2) mg/dL Troponin I (0.000-0.034) ng/mL Radiology Exams: Radiology Procedures Category Date Time Status CHEST 2 VIEWS (PA AND LAT) Urgent Exams 02/07/22 12:43 Completed Assessment/Plan (1) Hypertensive emergency Current Visit: Yes Status: Acute Assessment & Plan: Very difficult to lower BP but it finally seems to be responding to PO meds. Pt does not like the amlodipine d/t history of edema, but was a relatively quick way to get the BP down. Code(s): I16.1 - HYPERTENSIVE EMERGENCY (2) Headache Current Visit: Yes Status: Acute Qualifiers: Headache type: unspecified Headache chronicity pattern: acute headache Intractability: not intractable Qualified Code(s): R51.9 - Headache, unspecified Assessment & Plan: improved Code(s): R51.9 - HEADACHE, UNSPECIFIED (3) Elevated troponin Current Visit: Yes Status: Acute Assessment & Plan: trending down, likely related to elevated BPs. Code(s): R77.8 - OTHER SPECIFIED ABNORMALITIES OF PLASMA PROTEINS (4) Melena Current Visit: Yes Status: Acute Code(s): K92.1 - MELENA (5) Leukocytosis Current Visit: Yes Status: Acute Qualifiers: Leukocytosis type: unspecified Qualified Code(s): D72.829 - Elevated white blood cell count, unspecified Code(s): D72.829 - ELEVATED WHITE BLOOD CELL COUNT, UNSPECIFIED (6) COPD (chronic obstructive pulmonary disease) with acute bronchitis Current Visit: No Status: Chronic Assessment & Plan: ok to resume home trelegy ellipta and stop nebs here. RT found them ineffective, and I worry about increasing pt's BP. Code(s): J44.0 - CHR OBSTRUCTIVE PULMON DISEASE WITH (ACUTE) LOWER RESP INFCT; J20.9 - ACUTE BRONCHITIS, UNSPECIFIED (7) Chest pain Current Visit: Yes Status: Resolved Qualifiers: Chest pain type: unspecified Qualified Code(s): R07.9 - Chest pain, unspecified Assessment & Plan: cxr yesterday non-acute. Code(s): R07.9 - CHEST PAIN, UNSPECIFIED
[2022-02-08] MEDS ORDERED: ANTIVERT 25 MG PO PRN (17:53)
[2022-02-08] MEDS: Lantus Insulin SQ SCH (18:20)
[2022-02-08] MEDS: ZOCOR 20MG PO SCH (21:49)
[2022-02-09 05:47] LABS: Absolute Neutrophil Ct (ANC) 8.73 x10^3/uL (1.4-6.9); Basophil (Absolute #) 0.06 x10^3/uL (0-0.4); Eosinophil % 5.1 % (0.00-5.0); Eosinophil (Absolute #) 0.62 x10^3/uL (0-0.5); Hematocrit 39.7 % (42-50); Hemoglobin 12.8 g/dL (12.5-18.0); Lymphocytes % 12.3 % (24.0-44.0); Mean Corpuscular Hgb Concent. 32.2 g/dL (32-36); Mean Platelet Volume 10.1 fL (7.5-11.0); Monocyte (Absolute #) 1.28 x10^3/uL (0.0-1.3); Monocytes % 10.5 % (0.0-12.0); Neutrophil % 71.2 % (36.0-66.0); Platelet Count 281 x10^3/uL (150-450); Red Blood Count 4.27 x10^6/uL (4.1-5.6); Red Cell Distribution Width 12.3 % (11.5-14.0); White Blood Count 12.2 x10^3/uL (4.0-10.5)
[2022-02-09 06:29] LABS: BLOOD UREA NITROGEN 26 mg/dL (9-20); CHLORIDE 95 mmol/L (98-107); Calcium 8.7 mg/dL (8.4-10.2); Carbon Dioxide 37 mmol/L (22-30); Creatinine 1 1.14 mg/dL (0.66-1.25); EST GLOMERULAR FILTRATION RATE > 60.0 ML/MIN; Glucose 107 mg/dL (74-106); Potassium 4.1 mmol/L (3.5-5.1); SODIUM 133 mmol/L (137-145)
[2022-02-09] MEDS: Apresoline 25 MG TABLET PO SCH ×3 (06:52→21:08)
[2022-02-09] MEDS: PATIENT OWN MEDICATION IH SCH ×2 (07:32→12:15)
[2022-02-09] MEDS: ECOTRIN 81 MG PO SCH (08:57)
[2022-02-09] MEDS: ENOXAPARIN SODIUM SQ SCH (08:58)
[2022-02-09] MEDS: CLONIDINE 0.1 MG TABLET PO SCH (08:58)
[2022-02-09] MEDS: NORVASC 5 MG PO SCH (08:58)
[2022-02-09] MEDS: DIOVAN 80 MG PO SCH (08:58)
[2022-02-09] MEDS: Pepcid 20 MG PO SCH ×2 (08:58→21:08)
[2022-02-09] MEDS: COREG 12.5 MG PO SCH ×2 (08:58→21:08)
[2022-02-09] MEDS ORDERED: CLONIDINE 0.1 MG TABLET PO PRN (13:04)
[2022-02-09] MEDS: CHLORTHALIDONE PO SCH (14:45)
--- NOTE | 2022-02-09 15:16 | XRAY ---
Indication: Hypertension. Two-dimensional sonogram and color Doppler imaging of the carotid arteries of the neck performed. Comparison: None Examination of the right carotid circulation demonstrates widely patent common carotid artery. There is mild calcified plaquing at the level of the bulb extending into the origin/proximal internal carotid artery and lesser degree external carotid artery. Remaining internal carotid artery is tortuous. PSV of the CCA is 40 cm/s. PSV of the ICA is 77 cm/s. ICA/CCA ratio is 1.9. Normal antegrade vertebral artery flow. Examination of the left carotid circulation demonstrates minimal soft plaquing in the mid common carotid artery. Minimal calcified plaquing at the level of the bulb. Mild plaquing in the proximal internal carotid and very minimal in the proximal external carotid arteries. Remaining distal internal carotid artery is tortuous. PSV of the CCA is 46 cm/s. PSV of the ICA is 97 cm/s. ICA/CCA ratio is 2.1. Normal antegrade vertebral artery flow. Impression: Minimal/mild arteriosclerotic plaquing bilaterally as detailed. Velocity measurements and ratios favors less than 50% stenosis bilaterally.
[2022-02-09] MEDS: Lantus Insulin SQ SCH (17:31)
[2022-02-09] MEDS: TYLENOL 325 MG PO PRN (19:39)
[2022-02-09] MEDS: ZOCOR 20MG PO SCH (21:08)
--- NOTE | 2022-02-09 22:45 | PCM.NOTE ---
Date and Time: 02/09/222243 Subjective Assessment: doing better - Review of Systems Constitutional: No Fever, No Chills Eyes: No Symptoms Ears, Nose, & Throat: No Symptoms Respiratory: No Cough, No Short Of Breath Cardiac: No Chest Pain, No Edema, No Syncope Abdominal/Gastrointestinal: No Abdominal Pain, No Nausea, No Vomiting, No Diarrhea Genitourinary Symptoms: No Dysuria Musculoskeletal: No Back Pain, No Neck Pain Skin: No Rash Neurological: No Dizziness, No Focal Weakness, No Sensory Changes Psychological: No Symptoms Endocrine: No Symptoms Hematologic/Lymphatic: No Symptoms Immunological/Allergic: No Symptoms Objective Exam General Appearance: no apparent distress, alert Neurologic Exam: alert, oriented x 3, cooperative, normal mood/affect, nml cerebellar function, sensation nml, No motor deficits Skin Exam: normal color, warm, dry Eye Exam: PERRL, EOMI, eyes nml inspection Ears, Nose, Throat Exam: normal ENT inspection, pharynx normal, moist mucous membranes Neck Exam: normal inspection, non-tender, supple, full range of motion Respiratory Exam: normal breath sounds, lungs clear, No respiratory distress Cardiovascular Exam: regular rate/rhythm, normal heart sounds Gastrointestinal/Abdomen Exam: soft, No tenderness, No mass Extremity Exam: normal inspection, normal range of motion Back Exam: normal inspection, normal range of motion, No CVA tenderness, No vertebral tenderness Male Genitalia Exam: deferred Rectal Exam: deferred OBJECTIVE DATA Vital Signs: Vital Signs - 24 hr Temp Pulse Resp BP Pulse Ox 02/09/22 19:56 97.3 F 72 21 139/66 90 L 02/09/22 19:28 72 02/09/22 19:07 72 18 92 L 02/09/22 18:00 74 18 139/66 91 L 02/09/22 16:59 68 18 157/70 92 L 02/09/22 16:00 97.9 F 66 16 157/70 92 L 02/09/22 15:00 97.5 F 65 19 157/76 94 L 02/09/22 13:00 66 18 117/52 92 L 02/09/22 12:00 98.1 F 65 24 120/58 94 L 02/09/22 11:00 64 120/58 02/09/22 10:00 70 18 152/68 90 L 02/09/22 09:00 69 17 174/77 96 02/09/22 08:00 70 02/09/22 07:41 97.9 F 60 23 192/92 97 02/09/22 07:32 62 20 95 02/09/22 07:00 97.9 F 60 23 192/92 97 02/09/22 06:00 53 L 13 178/75 97 02/09/22 05:00 63 140/52 95 02/09/22 04:00 67 156/63 96 02/09/22 03:00 50 L 18 135/60 97 02/09/22 02:00 64 17 147/67 92 L 02/09/22 01:00 66 20 129/45 94 L 02/09/22 00:01 66 02/09/22 00:00 66 16 116/57 95 02/08/22 23:00 70 16 112/47 95 Pain Assessment - Last Documented Pain Intensity 2 Pain Scale Used 0-10 Pain Scale Intake and Output: Intake & Output 02/07/22 02/08/22 02/09/22 02/10/22 12:59 11:59 11:59 11:59 Intake Total 1160 400 Output Total 1800 Balance -640 400 Weight Lab Results: Lab Results-Last 24 Hours 02/08/22 02/09/22 02/09/22 Range/Units 23:49 05:00 05:00 WBC 12.2 H (4.0-10.5) x10^3/uL RBC 4.27 (4.1-5.6) x10^6/uL Hgb 12.8 (12.5-18.0) g/dL Hct 39.7 L (42-50) % MCV 93.0 (78-100) fL MCH 30.0 (26-32) pg MCHC 32.2 (32-36) g/dL RDW 12.3 (11.5-14.0) % Plt Count 281 (150-450) x10^3/uL MPV 10.1 (7.5-11.0) fL Gran % 71.2 H (36.0-66.0) % Immature Gran % (Auto) 0.4 (0.00-0.4) % Nucleat RBC Rel Count 0.0 (0.00-0.1) % Eos # (Auto) 0.62 H (0-0.5) x10^3/uL Immature Gran # (Auto) 0.05 H (0.00-0.03) x10^3u/L Absolute Lymphs (auto) 1.50 (1.0-4.6) x10^3/uL Absolute Monos (auto) 1.28 (0.0-1.3) x10^3/uL Absolute Nucleated RBC 0.00 (0.00-0.01) x10^3u/L Lymphocytes % 12.3 L (24.0-44.0) % Monocytes % 10.5 (0.0-12.0) % Eosinophils % 5.1 H (0.00-5.0) % Basophils % 0.5 (0.0-0.4) % Absolute Granulocytes 8.73 H (1.4-6.9) x10^3/uL Basophils # 0.06 (0-0.4) x10^3/uL Sodium 133 L (137-145) mmol/L Potassium 4.1 (3.5-5.1) mmol/L Chloride 95 L (98-107) mmol/L Carbon Dioxide 37 H (22-30) mmol/L Anion Gap 5.0 (5-15) MEQ/L BUN 26 H (9-20) mg/dL Creatinine 1.14 (0.66-1.25) mg/dL Estimated GFR > 60.0 ML/MIN Glucose 107 H (74-106) mg/dL POC Glucometer Cancelled Calcium 8.7 (8.4-10.2) mg/dL 02/09/22 02/09/22 02/09/22 Range/Units 07:35 11:36 16:23 WBC (4.0-10.5) x10^3/uL RBC (4.1-5.6) x10^6/uL Hgb (12.5-18.0) g/dL Hct (42-50) % MCV (78-100) fL MCH (26-32) pg MCHC (32-36) g/dL RDW (11.5-14.0) % Plt Count (150-450) x10^3/uL MPV (7.5-11.0) fL Gran % (36.0-66.0) % Immature Gran % (Auto) (0.00-0.4) % Nucleat RBC Rel Count (0.00-0.1) % Eos # (Auto) (0-0.5) x10^3/uL Immature Gran # (Auto) (0.00-0.03) x10^3u/L Absolute Lymphs (auto) (1.0-4.6) x10^3/uL Absolute Monos (auto) (0.0-1.3) x10^3/uL Absolute Nucleated RBC (0.00-0.01) x10^3u/L Lymphocytes % (24.0-44.0) % Monocytes % (0.0-12.0) % Eosinophils % (0.00-5.0) % Basophils % (0.0-0.4) % Absolute Granulocytes (1.4-6.9) x10^3/uL Basophils # (0-0.4) x10^3/uL Sodium (137-145) mmol/L Potassium (3.5-5.1) mmol/L Chloride (98-107) mmol/L Carbon Dioxide (22-30) mmol/L Anion Gap (5-15) MEQ/L BUN (9-20) mg/dL Creatinine (0.66-1.25) mg/dL Estimated GFR ML/MIN Glucose (74-106) mg/dL POC Glucometer 105 192 H 89 Calcium (8.4-10.2) mg/dL 02/09/22 Range/Units 21:19 WBC (4.0-10.5) x10^3/uL RBC (4.1-5.6) x10^6/uL Hgb (12.5-18.0) g/dL Hct (42-50) % MCV (78-100) fL MCH (26-32) pg MCHC (32-36) g/dL RDW (11.5-14.0) % Plt Count (150-450) x10^3/uL MPV (7.5-11.0) fL Gran % (36.0-66.0) % Immature Gran % (Auto) (0.00-0.4) % Nucleat RBC Rel Count (0.00-0.1) % Eos # (Auto) (0-0.5) x10^3/uL Immature Gran # (Auto) (0.00-0.03) x10^3u/L Absolute Lymphs (auto) (1.0-4.6) x10^3/uL Absolute Monos (auto) (0.0-1.3) x10^3/uL Absolute Nucleated RBC (0.00-0.01) x10^3u/L Lymphocytes % (24.0-44.0) % Monocytes % (0.0-12.0) % Eosinophils % (0.00-5.0) % Basophils % (0.0-0.4) % Absolute Granulocytes (1.4-6.9) x10^3/uL Basophils # (0-0.4) x10^3/uL Sodium (137-145) mmol/L Potassium (3.5-5.1) mmol/L Chloride (98-107) mmol/L Carbon Dioxide (22-30) mmol/L Anion Gap (5-15) MEQ/L BUN (9-20) mg/dL Creatinine (0.66-1.25) mg/dL Estimated GFR ML/MIN Glucose (74-106) mg/dL POC Glucometer 114 H Calcium (8.4-10.2) mg/dL Radiology Exams: Radiology Procedures Category Date Time Status CAROTID BILATERAL [US] Routine Exams 02/09/22 10:00 Completed CAROTID BILATERAL [US] Routine Exams 02/10/22 10:00 Stop Req ECHO W/2D AND DOPPLER [US] Routine Exams 02/09/22 09:00 Taken ECHO W/2D AND DOPPLER [US] Routine Exams 02/10/22 09:00 Stop Req Renal Ultrasound [KIDNEY] [US] Routine Exams 02/10/22 08:00 Ordered Assessment/Plan (1) Elevated troponin Current Visit: Yes Status: Resolved Code(s): R77.8 - OTHER SPECIFIED ABNORMALITIES OF PLASMA PROTEINS (2) Hypertensive emergency Current Visit: Yes Status: Acute Assessment & Plan: Chief Complaint Diagnosis Hypertensive urgency Allergies Allergy/AdvReac Type Severity Reaction Status Date / Time Sulfa (Sulfonamide AdvReac Verified 02/06/22 14:27 Antibiotics) Vital Signs (Last 24 hours) Temp Pulse Resp BP Pulse Ox 02/09/22 19:56 97.3 F 72 21 139/66 90 L 02/09/22 19:28 72 02/09/22 19:07 72 18 92 L 02/09/22 18:00 74 18 139/66 91 L 02/09/22 16:59 68 18 157/70 92 L 02/09/22 16:00 97.9 F 66 16 157/70 92 L 02/09/22 15:00 97.5 F 65 19 157/76 94 L 02/09/22 13:00 66 18 117/52 92 L 02/09/22 12:00 98.1 F 65 24 120/58 94 L 02/09/22 11:00 64 120/58 02/09/22 10:00 70 18 152/68 90 L 02/09/22 09:00 69 17 174/77 96 02/09/22 08:00 70 02/09/22 07:41 97.9 F 60 23 192/92 97 02/09/22 07:32 62 20 95 02/09/22 07:00 97.9 F 60 23 192/92 97 02/09/22 06:00 53 L 13 178/75 97 02/09/22 05:00 63 140/52 95 02/09/22 04:00 67 156/63 96 02/09/22 03:00 50 L 18 135/60 97 02/09/22 02:00 64 17 147/67 92 L 02/09/22 01:00 66 20 129/45 94 L 02/09/22 00:01 66 02/09/22 00:00 66 16 116/57 95 02/08/22 23:00 70 16 112/47 95 Home Medications Medication Instructions Recorded Confirmed Last Taken Type Amlodipine Besylate 10 mg PO DAILY 02/06/22 02/06/22 02/06/22 History Carvedilol 3.125 mg [Coreg 3.125 mg PO BID 02/06/22 02/06/22 02/06/22 History 3.125 MG] cloNIDine HCL [Clonidine HCl] 0.1 mg PO BID 02/06/22 02/06/22 02/06/22 History Current Medications Generic Name Dose Route Start Last Admin Trade Name Freq PRN Reason Stop Dose Admin Acetaminophen 650 mg 02/06/22 16:49 02/09/22 19:39 Acetaminophen 325 Mg Tablet PO 03/08/22 16:48 650 mg Q4H PRN PRN Administration PAIN, FEVER, HEADACHE Albuterol Sulfate 1 puff 02/06/22 16:57 Albuterol Common Canister Inhaler IH 03/08/22 16:56 QID PRN PRN SHORTNESS OF BREATH Amlodipine Besylate 5 mg 02/08/22 11:42 02/09/22 08:58 Amlodipine Besylate 5 Mg Tablet PO 03/10/22 11:41 5 mg QAM DAVE Administration Aspirin 81 mg 02/07/22 10:00 02/09/22 08:57 Aspirin 81 Mg Tablet.Ec PO 03/09/22 09:59 81 mg DAILY DAVE Administration Carvedilol 25 mg 02/09/22 22:00 02/09/22 21:08 Carvedilol 12.5 Mg Tablet PO 03/11/22 21:59 25 mg BID DAVE Administration Chlorthalidone 25 mg 02/09/22 14:00 02/09/22 14:45 Chlorthalidone 25 Mg Tablet PO 03/11/22 13:59 25 mg DAILY DAVE Administration Clonidine 0.1 mg 02/09/22 13:04 Clonidine Hcl 0.1 Mg Tablet PO 03/11/22 13:03 BID PRN PRN HYPERTENSION Enoxaparin Sodium 40 mg 02/07/22 19:00 02/09/22 08:58 Enoxaparin Sodium 40 Mg/0.4 Ml Syringe SQ 03/09/22 18:59 40 mg DAILY DAVE Administration Famotidine 20 mg 02/08/22 10:00 02/09/22 21:08 Famotidine 20 Mg Tablet PO 03/10/22 09:59 20 mg BID DAVE Administration Hydralazine HCl 10 mg 02/07/22 07:19 02/08/22 04:21 Hydralazine Hcl 20 Mg/Ml Vial IV 03/09/22 07:18 10 mg [id number] PRN Administration HYPERTENSION Hydralazine HCl 25 mg 02/09/22 22:00 02/09/22 21:08 Hydralazine Hcl 25 Mg Tablet PO 03/11/22 21:59 25 mg BID DAVE Administration Insulin Glargine 30 unit 02/06/22 18:00 02/09/22 17:31 Insulin Glargine 1 Unit SQ 03/08/22 17:59 30 unit 1800 DAVE Administration Ketorolac Tromethamine 30 mg 02/07/22 09:22 02/07/22 16:43 Ketorolac Tromethamine 30 Mg/Ml Inj IV 02/12/22 09:21 30 mg Q6H PRN PRN Administration PAIN Lorazepam 0.5 mg 02/07/22 12:08 Lorazepam 0.5 Mg Tablet PO 03/09/22 12:07 HS PRN PRN INSOMNIA Meclizine HCl 12.5 mg 02/08/22 17:53 Meclizine Hcl 25 Mg Tablet PO 03/10/22 17:52 TID PRN PRN DIZZINESS Ondansetron HCl 4 mg 02/07/22 09:24 02/08/22 10:12 Ondansetron Hcl 4 Mg/2 Ml Vial IV 03/09/22 09:23 4 mg Q4H PRN PRN Administration NAUSEA/VOMITING Patient Own Med : 1 each 02/09/22 07:00 02/09/22 12:15 Trelogy 03/11/22 06:59 Not Given DAILY DAVE Simvastatin 20 mg 02/06/22 22:00 02/09/22 21:08 Simvastatin 20 Mg Tablet PO 03/08/22 21:59 20 mg HS DAVE Administration Valsartan 160 mg 02/08/22 11:40 02/09/22 08:58 Valsartan 80 Mg Tablet PO 03/10/22 11:39 160 mg DAILY DAVE Administration Discontinued Medications Generic Name Dose Route Start Last Admin Trade Name Freq PRN Reason Stop Dose Admin Al Hydrox/Mg Hydrox/Simethicone Confirm 02/07/22 17:38 Mag Hydrox/Al Hydrox/Simeth 30 Ml Udcup Administered 02/07/22 17:39 Dose 30 ml .ROUTE .STK-MED ONE Albuterol Sulfate 2.5 mg 02/07/22 11:00 02/08/22 10:55 Albuterol Sulfate 2.5 Mg/3 Ml Neb 03/09/22 10:59 2.5 mg Q4HRT DAVE Administration Amlodipine Besylate 10 mg 02/07/22 10:00 02/07/22 09:27 Amlodipine Besylate 5 Mg Tablet PO 03/09/22 09:59 Not Given DAILY DAVE Amlodipine Besylate 5 mg 02/07/22 20:00 02/07/22 21:10 Amlodipine Besylate 5 Mg Tablet PO 02/07/22 20:01 5 mg ONCE ONE Administration Carvedilol 3.125 mg 02/06/22 22:00 02/07/22 08:00 Carvedilol 3.125 Mg Tablet PO 03/08/22 21:59 3.125 mg BID DAVE Administration Carvedilol 12.5 mg 02/07/22 19:30 02/09/22 08:58 Carvedilol 12.5 Mg Tablet PO 03/09/22 19:29 12.5 mg BID DAVE Administration Clonidine 0.1 mg 02/06/22 22:00 02/09/22 08:58 Clonidine Hcl 0.1 Mg Tablet PO 03/08/22 21:59 0.1 mg BID DAVE Administration Clonidine 0.1 mg 02/07/22 17:33 02/07/22 17:43 Clonidine Hcl 0.1 Mg Tablet PO 02/07/22 17:34 0.1 mg STAT ONE Administration Famotidine 20 mg 02/07/22 23:10 02/07/22 23:18 Famotidine 20 Mg/1 Vial IV 02/07/22 23:11 20 mg 1XONLY ONE Administration Hydralazine HCl 10 mg 02/06/22 14:27 02/06/22 14:32 Hydralazine Hcl 20 Mg/Ml Vial IV 02/06/22 14:28 10 mg STAT ONE Administration Hydralazine HCl Confirm 02/06/22 14:29 Hydralazine Hcl 20 Mg/Ml Vial Administered 02/06/22 14:30 Dose 20 mg .ROUTE .STK-MED ONE Hydralazine HCl 10 mg 02/06/22 15:06 02/06/22 15:10 Hydralazine Hcl 20 Mg/Ml Vial IV 02/06/22 15:07 10 mg STAT ONE Administration Hydralazine HCl Confirm 02/06/22 15:09 Hydralazine Hcl 20 Mg/Ml Vial Administered 02/06/22 15:10 Dose 20 mg .ROUTE .STK-MED ONE Hydralazine HCl 10 mg 02/06/22 16:49 02/07/22 01:03 Hydralazine Hcl 20 Mg/Ml Vial IV 03/08/22 16:48 10 mg Q4H PRN PRN Administration HYPERTENSION Hydralazine HCl 20 mg 02/07/22 04:48 02/07/22 04:52 Hydralazine Hcl 20 Mg/Ml Vial IV 02/07/22 04:49 20 mg STAT ONE Administration Hydralazine HCl 25 mg 02/07/22 13:00 02/09/22 11:48 Hydralazine Hcl 25 Mg Tablet PO 03/09/22 12:59 25 mg QID DAVE Administration Hydralazine HCl 25 mg 02/07/22 19:01 02/07/22 20:39 Hydralazine Hcl 20 Mg/Ml Vial IV 02/07/22 19:02 25 mg STAT ONE Administration Lidocaine HCl Confirm 02/07/22 17:38 Lidocaine Hcl 2% Viscous 15 Ml Udcup Administered 02/07/22 17:39 Dose 15 ml .ROUTE .STK-MED ONE Losartan Potassium 50 mg 02/06/22 22:00 02/08/22 10:01 Losartan Potassium 50 Mg Tablet PO 03/08/22 21:59 Not Given BID DAVE Magnesium Hydroxide 45 ml 02/07/22 17:40 02/07/22 17:43 Mag Hydrx/Alum Hyd/Simeth/Lido 45 Ml Bottle PO 02/07/22 17:41 45 ml STAT ONE Administration Miscellaneous Information 1 each 02/06/22 17:15 Medication Intervention 1 Each Each 03/08/22 17:14 .RT TO CHECK DAVE Morphine Sulfate 2 mg 02/06/22 15:47 02/06/22 15:55 Morphine Sulfate 2 Mg/Ml Inj IV 02/06/22 15:48 2 mg STAT ONE Administration Morphine Sulfate Confirm 02/06/22 15:54 Morphine Sulfate 2 Mg/Ml Inj Administered 02/06/22 15:55 Dose 2 mg .ROUTE .STK-MED ONE Morphine Sulfate 4 mg 02/06/22 16:49 02/07/22 03:38 Morphine Sulfate 4 Mg/Ml Injection IV 02/11/22 16:48 4 mg Q6H PRN PRN Administration PAIN Ondansetron HCl 4 mg 02/06/22 15:47 02/06/22 15:55 Ondansetron Hcl 4 Mg/2 Ml Vial IV 02/06/22 15:48 4 mg STAT ONE Administration Ondansetron HCl Confirm 02/06/22 15:53 Ondansetron Hcl 4 Mg/2 Ml Vial Administered 02/06/22 15:54 Dose 4 mg .ROUTE .STK-MED ONE Ondansetron HCl 4 mg 02/06/22 16:49 02/07/22 06:49 Ondansetron Hcl 4 Mg/2 Ml Vial IV 03/08/22 16:48 4 mg Q6H PRN PRN Administration NAUSEA/VOMITING Fluticasone/Salmeterol 2 puff 02/06/22 19:00 02/08/22 07:09 Fluticasone/Salmeterol 115/21 - 120 Puff Common Canister IH 03/08/22 18:59 2 puff BIDRT DAVE Administration Valsartan 160 mg 02/07/22 20:00 02/07/22 23:18 Valsartan 80 Mg Tablet PO 02/07/22 20:01 160 mg ONCE ONE Administration Intake & Output (Last 24 hours) 02/07/22 02/08/22 02/09/22 02/10/22 12:59 11:59 11:59 11:59 Intake Total 1160 400 Output Total 1800 Balance -640 400 Weight Laboratory Results (Last 24 hours) 02/09/22 02/09/22 02/09/22 21:19 16:23 11:36 WBC RBC Hgb Hct MCV MCH MCHC RDW Plt Count MPV Gran % Immature Gran % (Auto) Nucleat RBC Rel Count Eos # (Auto) Immature Gran # (Auto) Absolute Lymphs (auto) Absolute Monos (auto) Absolute Nucleated RBC Lymphocytes % Monocytes % Eosinophils % Basophils % Absolute Granulocytes Basophils # Sodium Potassium Chloride Carbon Dioxide Anion Gap BUN Creatinine Estimated GFR Glucose POC Glucometer 114 H 89 192 H Calcium 02/09/22 02/09/22 02/09/22 07:35 05:00 05:00 WBC 12.2 H RBC 4.27 Hgb 12.8 Hct 39.7 L MCV 93.0 MCH 30.0 MCHC 32.2 RDW 12.3 Plt Count 281 MPV 10.1 Gran % 71.2 H Immature Gran % (Auto) 0.4 Nucleat RBC Rel Count 0.0 Eos # (Auto) 0.62 H Immature Gran # (Auto) 0.05 H Absolute Lymphs (auto) 1.50 Absolute Monos (auto) 1.28 Absolute Nucleated RBC 0.00 Lymphocytes % 12.3 L Monocytes % 10.5 Eosinophils % 5.1 H Basophils % 0.5 Absolute Granulocytes 8.73 H Basophils # 0.06 Sodium 133 L Potassium 4.1 Chloride 95 L Carbon Dioxide 37 H Anion Gap 5.0 BUN 26 H Creatinine 1.14 Estimated GFR > 60.0 Glucose 107 H POC Glucometer 105 Calcium 8.7 02/08/22 23:49 WBC RBC Hgb Hct MCV MCH MCHC RDW Plt Count MPV Gran % Immature Gran % (Auto) Nucleat RBC Rel Count Eos # (Auto) Immature Gran # (Auto) Absolute Lymphs (auto) Absolute Monos (auto) Absolute Nucleated RBC Lymphocytes % Monocytes % Eosinophils % Basophils % Absolute Granulocytes Basophils # Sodium Potassium Chloride Carbon Dioxide Anion Gap BUN Creatinine Estimated GFR Glucose POC Glucometer Cancelled Calcium Orders (Last 24 hours) Category Date Time Status NPO Diet 02/10/22 00:01 Active CAROTID BILATERAL [US] Routine Exams 02/09/22 10:00 Completed CAROTID BILATERAL [US] Routine Exams 02/10/22 10:00 Stop Req ECHO W/2D AND DOPPLER [US] Routine Exams 02/09/22 09:00 Taken ECHO W/2D AND DOPPLER [US] Routine Exams 02/10/22 09:00 Stop Req Renal Ultrasound [KIDNEY] [US] Routine Exams 02/10/22 08:00 Ordered BMP AM.LAB Lab 02/09/22 05:00 Completed CBC W DIFF AM.LAB Lab 02/09/22 05:00 Completed POCT GLUCOSE Stat Lab 02/09/22 07:35 Completed POCT GLUCOSE Stat Lab 02/09/22 11:36 Completed POCT GLUCOSE Stat Lab 02/09/22 16:23 Completed POCT GLUCOSE Stat Lab 02/09/22 21:19 Completed Carvedilol 12.5 mg [Coreg 12.5 mg] Med 02/09/22 22:00 Active 25 mg PO BID Chlorthalidone Med 02/09/22 14:00 Active 25 mg PO DAILY Clonidine HCl 0.1 mg [Clonidine 0.1 mg Tablet] Med 02/09/22 13:04 Active 0.1 mg PO BID PRN PRN HydrALAzine HCL 25 MG TAB [Apresoline 25 MG TABLET Med 02/09/22 22:00 Active *] 25 mg PO BID Patient Own Med [Patient Own Medication] Med 02/09/22 07:00 Active 1 each IH DAILY Respiratory MDI DAILY RT 02/09/22 07:00 Active Patient Care Notes (Last 24 hours) 02/09/22 20:39 Nursing Note by ROMERO MEANS PT'S O2 SAT ON ROOM AIR WHILE SLEEPING WAS 85-86%. CALLED RESPIRATORY AND RESPIRATORY RECOMMENDED 2L O2. O2 PLACED ON VIA NASAL CANNULA AT 2L AND SATS ARE 95%. Initialized on 02/09/22 20:39 - END OF NOTE 02/09/22 12:39 Nursing Note by Sylvie Gonzalez spoke with on phone about the patient. patient will see in office next week. Initialized on 02/09/22 12:39 - END OF NOTE Code(s): I16.1 - HYPERTENSIVE EMERGENCY (3) COPD (chronic obstructive pulmonary disease) with acute bronchitis Current Visit: No Status: Chronic Code(s): J44.0 - CHR OBSTRUCTIVE PULMON DISEASE WITH (ACUTE) LOWER RESP INFCT; J20.9 - ACUTE BRONCHITIS, UNSPECIFIED
[2022-02-10] MEDS: TORAdol 30 mg Injection IV PRN (05:18)
[2022-02-10] MEDS: PATIENT OWN MEDICATION IH SCH (08:09)
--- NOTE | 2022-02-10 10:34 | XRAY ---
Indication: Elevated BUN. Two-dimensional renal sonogram performed. Comparison: None Both kidneys are normal in reniform shape with normal color perfusion. Right kidney measures 9.8 x 6.0 x 5.4 cm and the left measures 10.0 x 5.4 x 4.8 cm. No focal solid/cystic renal mass or hydronephrosis. Cortical medullary differentiation preserved. Urinary bladder is empty and therefore not evaluated. Impression: Negative renal sonogram.
[2022-02-10] MEDS: ECOTRIN 81 MG PO SCH (10:42)
[2022-02-10] MEDS: DIOVAN 80 MG PO SCH (10:43)
[2022-02-10] MEDS: Apresoline 25 MG TABLET PO SCH (10:43)
[2022-02-10] MEDS: NORVASC 5 MG PO SCH (10:43)
[2022-02-10] MEDS: CHLORTHALIDONE PO SCH (10:43)
[2022-02-10] MEDS: COREG 12.5 MG PO SCH (10:43)
[2022-02-10] MEDS: Pepcid 20 MG PO SCH (10:43)
[2022-02-10] MEDS: ENOXAPARIN SODIUM SQ SCH (10:44)
[2022-02-10 12:07] VITALS: BP 160/58; O2SAT 96
[2022-02-10 13:10] VITALS: PULSE 67
--- NOTE | 2022-02-10 13:24 | PCM.DS ---
Discharge Summary Date of Admission: 02/07/22 11:58 Admitting Physician: SILVIA CAMPBELL Primary Care Provider: SILVIA CAMPBELL Allergies Allergies Sulfa (Sulfonamide Antibiotics) Adverse Reaction (Verified 02/06/22 14:27) Hospital Summary - Hospital Course Hospital Course: Chief Complaint Diagnosis Hypertensive urgency Allergies Allergy/AdvReac Type Severity Reaction Status Date / Time Sulfa (Sulfonamide AdvReac Verified 02/06/22 14:27 Antibiotics) Vital Signs (Last 24 hours) Temp Pulse Resp BP Pulse Ox 02/10/22 12:00 98.6 F 67 16 160/58 96 02/10/22 08:09 54 L 18 97 02/10/22 08:00 98.1 F 59 L 18 176/63 98 02/10/22 04:00 98.0 F 56 L 20 144/75 96 02/10/22 00:01 65 02/09/22 23:35 97.6 F 66 16 136/57 97 02/09/22 19:56 97.3 F 72 21 139/66 90 L 02/09/22 19:28 72 02/09/22 19:07 72 18 92 L 02/09/22 18:00 74 18 139/66 91 L 02/09/22 16:59 68 18 157/70 92 L 02/09/22 16:00 97.9 F 66 16 157/70 92 L 02/09/22 15:00 97.5 F 65 19 157/76 94 L Home Medications Medication Instructions Recorded Confirmed Last Taken Type Amlodipine Besylate 5 mg 5 mg PO QAM #30 tablet 02/10/22 Unknown Rx [Norvasc 5 mg] Carvedilol 12.5 mg [Coreg 12.5 25 mg PO BID #60 tablet 02/10/22 Unknown Rx mg] Chlorthalidone 25 mg PO DAILY #30 tablet 02/10/22 Unknown Rx HydrALAzine HCL 25 MG TAB 25 mg PO BID #60 tablet 02/10/22 Unknown Rx [Apresoline 25 MG TABLET] Valsartan 160 mg PO DAILY #60 tablet 02/10/22 Unknown Rx Current Medications Generic Name Dose Route Start Last Admin Trade Name Freq PRN Reason Stop Dose Admin Acetaminophen 650 mg 02/06/22 16:49 02/09/22 19:39 Acetaminophen 325 Mg Tablet PO 03/08/22 16:48 650 mg Q4H PRN PRN Administration PAIN, FEVER, HEADACHE Albuterol Sulfate 1 puff 02/06/22 16:57 Albuterol Common Canister Inhaler IH 03/08/22 16:56 QID PRN PRN SHORTNESS OF BREATH Amlodipine Besylate 5 mg 02/08/22 11:42 02/10/22 10:43 Amlodipine Besylate 5 Mg Tablet PO 03/10/22 11:41 5 mg QAM DAVE Administration Aspirin 81 mg 02/07/22 10:00 02/10/22 10:42 Aspirin 81 Mg Tablet.Ec PO 03/09/22 09:59 81 mg DAILY DAVE Administration Carvedilol 25 mg 02/09/22 22:00 02/10/22 10:43 Carvedilol 12.5 Mg Tablet PO 03/11/22 21:59 25 mg BID DAVE Administration Chlorthalidone 25 mg 02/09/22 14:00 02/10/22 10:43 Chlorthalidone 25 Mg Tablet PO 03/11/22 13:59 25 mg DAILY DAVE Administration Clonidine 0.1 mg 02/09/22 13:04 Clonidine Hcl 0.1 Mg Tablet PO 03/11/22 13:03 BID PRN PRN HYPERTENSION Enoxaparin Sodium 40 mg 02/07/22 19:00 02/10/22 10:44 Enoxaparin Sodium 40 Mg/0.4 Ml Syringe SQ 03/09/22 18:59 40 mg DAILY DAVE Administration Famotidine 20 mg 02/08/22 10:00 02/10/22 10:43 Famotidine 20 Mg Tablet PO 03/10/22 09:59 20 mg BID DAVE Administration Hydralazine HCl 10 mg 02/07/22 07:19 02/08/22 04:21 Hydralazine Hcl 20 Mg/Ml Vial IV 03/09/22 07:18 10 mg [id number] PRN Administration HYPERTENSION Hydralazine HCl 25 mg 02/09/22 22:00 02/10/22 10:43 Hydralazine Hcl 25 Mg Tablet PO 03/11/22 21:59 25 mg BID DAVE Administration Insulin Glargine 30 unit 02/06/22 18:00 02/09/22 17:31 Insulin Glargine 1 Unit SQ 03/08/22 17:59 30 unit 1800 DAVE Administration Ketorolac Tromethamine 30 mg 02/07/22 09:22 02/10/22 05:18 Ketorolac Tromethamine 30 Mg/Ml Inj IV 02/12/22 09:21 30 mg Q6H PRN PRN Administration PAIN Lorazepam 0.5 mg 02/07/22 12:08 Lorazepam 0.5 Mg Tablet PO 03/09/22 12:07 HS PRN PRN INSOMNIA Meclizine HCl 12.5 mg 02/08/22 17:53 Meclizine Hcl 25 Mg Tablet PO 03/10/22 17:52 TID PRN PRN DIZZINESS Ondansetron HCl 4 mg 02/07/22 09:24 02/08/22 10:12 Ondansetron Hcl 4 Mg/2 Ml Vial IV 03/09/22 09:23 4 mg Q4H PRN PRN Administration NAUSEA/VOMITING Patient Own Med : 1 each 02/09/22 07:00 02/10/22 08:09 Trelogy 03/11/22 06:59 1 each DAILY DAVE Administration Simvastatin 20 mg 02/06/22 22:00 02/09/22 21:08 Simvastatin 20 Mg Tablet PO 03/08/22 21:59 20 mg HS DAVE Administration Valsartan 160 mg 02/08/22 11:40 02/10/22 10:43 Valsartan 80 Mg Tablet PO 03/10/22 11:39 160 mg DAILY DAVE Administration Discontinued Medications Generic Name Dose Route Start Last Admin Trade Name Freq PRN Reason Stop Dose Admin Al Hydrox/Mg Hydrox/Simethicone Confirm 02/07/22 17:38 Mag Hydrox/Al Hydrox/Simeth 30 Ml Udcup Administered 02/07/22 17:39 Dose 30 ml .ROUTE .STK-MED ONE Albuterol Sulfate 2.5 mg 02/07/22 11:00 02/08/22 10:55 Albuterol Sulfate 2.5 Mg/3 Ml Neb 03/09/22 10:59 2.5 mg Q4HRT DAVE Administration Amlodipine Besylate 10 mg 02/07/22 10:00 02/07/22 09:27 Amlodipine Besylate 5 Mg Tablet PO 03/09/22 09:59 Not Given DAILY DAVE Amlodipine Besylate 5 mg 02/07/22 20:00 02/07/22 21:10 Amlodipine Besylate 5 Mg Tablet PO 02/07/22 20:01 5 mg ONCE ONE Administration Carvedilol 3.125 mg 02/06/22 22:00 02/07/22 08:00 Carvedilol 3.125 Mg Tablet PO 03/08/22 21:59 3.125 mg BID DAVE Administration Carvedilol 12.5 mg 02/07/22 19:30 02/09/22 08:58 Carvedilol 12.5 Mg Tablet PO 03/09/22 19:29 12.5 mg BID DAVE Administration Clonidine 0.1 mg 02/06/22 22:00 02/09/22 08:58 Clonidine Hcl 0.1 Mg Tablet PO 03/08/22 21:59 0.1 mg BID DAVE Administration Clonidine 0.1 mg 02/07/22 17:33 02/07/22 17:43 Clonidine Hcl 0.1 Mg Tablet PO 02/07/22 17:34 0.1 mg STAT ONE Administration Famotidine 20 mg 02/07/22 23:10 02/07/22 23:18 Famotidine 20 Mg/1 Vial IV 02/07/22 23:11 20 mg 1XONLY ONE Administration Hydralazine HCl 10 mg 02/06/22 14:27 02/06/22 14:32 Hydralazine Hcl 20 Mg/Ml Vial IV 02/06/22 14:28 10 mg STAT ONE Administration Hydralazine HCl Confirm 02/06/22 14:29 Hydralazine Hcl 20 Mg/Ml Vial Administered 02/06/22 14:30 Dose 20 mg .ROUTE .STK-MED ONE Hydralazine HCl 10 mg 02/06/22 15:06 02/06/22 15:10 Hydralazine Hcl 20 Mg/Ml Vial IV 02/06/22 15:07 10 mg STAT ONE Administration Hydralazine HCl Confirm 02/06/22 15:09 Hydralazine Hcl 20 Mg/Ml Vial Administered 02/06/22 15:10 Dose 20 mg .ROUTE .STK-MED ONE Hydralazine HCl 10 mg 02/06/22 16:49 02/07/22 01:03 Hydralazine Hcl 20 Mg/Ml Vial IV 03/08/22 16:48 10 mg Q4H PRN PRN Administration HYPERTENSION Hydralazine HCl 20 mg 02/07/22 04:48 02/07/22 04:52 Hydralazine Hcl 20 Mg/Ml Vial IV 02/07/22 04:49 20 mg STAT ONE Administration Hydralazine HCl 25 mg 02/07/22 13:00 02/09/22 11:48 Hydralazine Hcl 25 Mg Tablet PO 03/09/22 12:59 25 mg QID DAVE Administration Hydralazine HCl 25 mg 02/07/22 19:01 02/07/22 20:39 Hydralazine Hcl 20 Mg/Ml Vial IV 02/07/22 19:02 25 mg STAT ONE Administration Lidocaine HCl Confirm 02/07/22 17:38 Lidocaine Hcl 2% Viscous 15 Ml Udcup Administered 02/07/22 17:39 Dose 15 ml .ROUTE .STK-MED ONE Losartan Potassium 50 mg 02/06/22 22:00 02/08/22 10:01 Losartan Potassium 50 Mg Tablet PO 03/08/22 21:59 Not Given BID DAVE Magnesium Hydroxide 45 ml 02/07/22 17:40 02/07/22 17:43 Mag Hydrx/Alum Hyd/Simeth/Lido 45 Ml Bottle PO 02/07/22 17:41 45 ml STAT ONE Administration Miscellaneous Information 1 each 02/06/22 17:15 Medication Intervention 1 Each Each 03/08/22 17:14 .RT TO CHECK DAVE Morphine Sulfate 2 mg 02/06/22 15:47 02/06/22 15:55 Morphine Sulfate 2 Mg/Ml Inj IV 02/06/22 15:48 2 mg STAT ONE Administration Morphine Sulfate Confirm 02/06/22 15:54 Morphine Sulfate 2 Mg/Ml Inj Administered 02/06/22 15:55 Dose 2 mg .ROUTE .STK-MED ONE Morphine Sulfate 4 mg 02/06/22 16:49 02/07/22 03:38 Morphine Sulfate 4 Mg/Ml Injection IV 02/11/22 16:48 4 mg Q6H PRN PRN Administration PAIN Ondansetron HCl 4 mg 02/06/22 15:47 02/06/22 15:55 Ondansetron Hcl 4 Mg/2 Ml Vial IV 02/06/22 15:48 4 mg STAT ONE Administration Ondansetron HCl Confirm 02/06/22 15:53 Ondansetron Hcl 4 Mg/2 Ml Vial Administered 02/06/22 15:54 Dose 4 mg .ROUTE .STK-MED ONE Ondansetron HCl 4 mg 02/06/22 16:49 02/07/22 06:49 Ondansetron Hcl 4 Mg/2 Ml Vial IV 03/08/22 16:48 4 mg Q6H PRN PRN Administration NAUSEA/VOMITING Fluticasone/Salmeterol 2 puff 02/06/22 19:00 02/08/22 07:09 Fluticasone/Salmeterol 115/21 - 120 Puff Common Canister IH 03/08/22 18:59 2 puff BIDRT DAVE Administration Valsartan 160 mg 02/07/22 20:00 02/07/22 23:18 Valsartan 80 Mg Tablet PO 02/07/22 20:01 160 mg ONCE ONE Administration Intake & Output (Last 24 hours) 02/08/22 02/09/22 02/10/22 02/11/22 11:59 11:59 11:59 11:59 Intake Total 1160 400 Output Total 1800 950 Balance -640 -550 Weight 85.3 kg Laboratory Results (Last 24 hours) 02/10/22 02/10/22 02/09/22 11:10 07:43 21:19 POC Glucometer 193 H 86 114 H 02/09/22 16:23 POC Glucometer 89 Orders (Last 24 hours) Category Date Time Status Heart-Healthy Diet Diet 02/10/22 Lunch Active NPO Diet 02/10/22 00:01 Completed Renal Ultrasound [KIDNEY] [US] Routine Exams 02/10/22 08:00 Completed POCT GLUCOSE Stat Lab 02/09/22 16:23 Completed POCT GLUCOSE Stat Lab 02/09/22 21:19 Completed POCT GLUCOSE Stat Lab 02/10/22 07:43 Completed POCT GLUCOSE Stat Lab 02/10/22 11:10 Completed Carvedilol 12.5 mg [Coreg 12.5 mg] Med 02/09/22 22:00 Active 25 mg PO BID Chlorthalidone Med 02/09/22 14:00 Active 25 mg PO DAILY Clonidine HCl 0.1 mg [Clonidine 0.1 mg Tablet] Med 02/09/22 13:04 Active 0.1 mg PO BID PRN PRN HydrALAzine HCL 25 MG TAB [Apresoline 25 MG TABLET Med 02/09/22 22:00 Active *] 25 mg PO BID Patient Care Notes (Last 24 hours) 02/09/22 20:39 Nursing Note by ROMERO MEANS PT'S O2 SAT ON ROOM AIR WHILE SLEEPING WAS 85-86%. CALLED RESPIRATORY AND RESPIRATORY RECOMMENDED 2L O2. O2 PLACED ON VIA NASAL CANNULA AT 2L AND SATS ARE 95%. Initialized on 02/09/22 20:39 - END OF NOTE - Vitals & Intake/Output Vital Signs: Vital Signs Temperature 98.6 F 02/10/22 12:00 Pulse Rate 67 02/10/22 12:00 Respiratory Rate 16 02/10/22 12:00 Blood Pressure 160/58 02/10/22 12:00 O2 Sat by Pulse Oximetry 96 02/10/22 12:00 Intake & Output: Intake & Output 02/08/22 02/09/22 02/10/22 02/11/22 11:59 11:59 11:59 11:59 Intake Total 1160 400 Output Total 1800 950 Balance -640 -550 Weight 85.3 kg - Lab Result Diagrams: 02/09/22 05:00 02/09/22 05:00 Lab Results-Last 24 Hrs: Lab Results-Last 24 Hours 02/09/22 02/09/22 02/10/22 Range/Units 16:23 21:19 07:43 POC Glucometer 89 114 H 86 (74 to 106) mg/dL 02/10/22 Range/Units 11:10 POC Glucometer 193 H (74 to 106) mg/dL Micro Results-Entire Visit: Accuchecks Date 02/10/22 Date 02/10/22 Date 02/09/22 Date 02/09/22 Time 12:05 Time 08:17 Time 21:28 Time 16:28 - Radiology Exams Ordered Rad Exams-Entire Visit: Radiology Procedures Category Date Time Status CAROTID BILATERAL [US] Routine Exams 02/09/22 10:00 Completed ECHO W/2D AND DOPPLER [US] Routine Exams 02/09/22 09:00 Taken Renal Ultrasound [KIDNEY] [US] Routine Exams 02/10/22 08:00 Completed - Procedures and Test Procedures and Tests throughout Hospitalization: Therapy Orders & Screens 02/06/22 16:49 EKG REPEAT IN AM Comment: 02/06/22 17:11 Respiratory MDI BID Comment: Diagnosis: Hypertensive urgency Respiratory Therapy Assessment DAILY Comment: Diagnosis: Hypertensive urgency 02/06/22 17:14 RT Screen per Nursing Assess ONCE Comment: Protocol Order Physician Instructions: Greater than 3 points order RT Admission Screen Reason For Exam: Triggered on Admission Diagnosis: Hypertensive urgency Diagnosis: Hypertensive urgency Pneumonia: No Home O2: No Asthma: No CHF: Yes Home CPAP/BIPAP: No Home Nebs/MDI: Yes Total Points: 8 02/07/22 17:30 EKG STAT Comment: Diagnosis: Hypertensive urgency 02/07/22 19:22 Oxygen NASAL CANNULA 2 lpm Comment: Diagnosis: Hypertensive urgency 02/07/22 21:30 EKG ROUTINE Comment: Diagnosis: Hypertensive urgency 02/08/22 00:30 EKG ROUTINE Comment: Diagnosis: Hypertensive urgency 02/08/22 02:30 EKG ROUTINE Comment: Diagnosis: Hypertensive urgency 02/08/22 11:56 EKG STAT Comment: Diagnosis: Hypertensive urgency 02/09/22 07:00 Respiratory MDI DAILY Comment: Diagnosis: Hypertensive urgency Discharge Exam General Appearance: no apparent distress, alert Neurologic Exam: alert, oriented x 3, cooperative, normal mood/affect, nml cerebellar function, sensation nml, No motor deficits Eye Exam: PERRL, EOMI, eyes nml inspection Ears, Nose, Throat Exam: normal ENT inspection, pharynx normal, moist mucous membranes Neck Exam: normal inspection, non-tender, supple, full range of motion Respiratory Exam: normal breath sounds, lungs clear, No respiratory distress Cardiovascular Exam: regular rate/rhythm, normal heart sounds Gastrointestinal/Abdomen Exam: soft, No tenderness, No mass Male Genitalia Exam: deferred Rectal Exam: deferred Back Exam: normal inspection, normal range of motion, No CVA tenderness, No vertebral tenderness Extremity Exam: normal inspection, normal range of motion Skin Exam: normal color, warm, dry Final Diagnosis/Problem List - Final Discharge Diagnosis/Problem (1) Elevated troponin Current Visit: Yes Status: Resolved Code(s): R77.8 - OTHER SPECIFIED ABNORMALITIES OF PLASMA PROTEINS (2) Hypertensive emergency Current Visit: Yes Status: Resolved Code(s): I16.1 - HYPERTENSIVE EMERGENCY (3) COPD (chronic obstructive pulmonary disease) with acute bronchitis Current Visit: Yes Status: Chronic Code(s): J44.0 - CHR OBSTRUCTIVE PULMON DISEASE WITH (ACUTE) LOWER RESP INFCT; J20.9 - ACUTE BRONCHITIS, UNSPECIFIED (4) Hypoxemia associated with sleep Current Visit: Yes Status: Acute Code(s): G47.36 - SLEEP RELATED HYPOVENTILATION IN CONDITIONS CLASSD ELSWHR (5) Hypoxemia requiring supplemental oxygen Current Visit: Yes Status: Acute Priority: High Assessment & Plan: Chief Complaint Diagnosis Hypertensive urgency Allergies Allergy/AdvReac Type Severity Reaction Status Date / Time Sulfa (Sulfonamide AdvReac Verified 02/06/22 14:27 Antibiotics) Vital Signs (Last 24 hours) Temp Pulse Resp BP Pulse Ox 02/10/22 12:00 98.6 F 67 16 160/58 96 02/10/22 08:09 54 L 18 97 02/10/22 08:00 98.1 F 59 L 18 176/63 98 02/10/22 04:00 98.0 F 56 L 20 144/75 96 02/10/22 00:01 65 02/09/22 23:35 97.6 F 66 16 136/57 97 02/09/22 19:56 97.3 F 72 21 139/66 90 L 02/09/22 19:28 72 02/09/22 19:07 72 18 92 L 02/09/22 18:00 74 18 139/66 91 L 02/09/22 16:59 68 18 157/70 92 L 02/09/22 16:00 97.9 F 66 16 157/70 92 L 02/09/22 15:00 97.5 F 65 19 157/76 94 L Home Medications Medication Instructions Recorded Confirmed Last Taken Type Amlodipine Besylate 5 mg 5 mg PO QAM #30 tablet 02/10/22 Unknown Rx [Norvasc 5 mg] Carvedilol 12.5 mg [Coreg 12.5 25 mg PO BID #60 tablet 02/10/22 Unknown Rx mg] Chlorthalidone 25 mg PO DAILY #30 tablet 02/10/22 Unknown Rx HydrALAzine HCL 25 MG TAB 25 mg PO BID #60 tablet 02/10/22 Unknown Rx [Apresoline 25 MG TABLET] Valsartan 160 mg PO DAILY #60 tablet 02/10/22 Unknown Rx Current Medications Generic Name Dose Route Start Last Admin Trade Name Freq PRN Reason Stop Dose Admin Acetaminophen 650 mg 02/06/22 16:49 02/09/22 19:39 Acetaminophen 325 Mg Tablet PO 03/08/22 16:48 650 mg Q4H PRN PRN Administration PAIN, FEVER, HEADACHE Albuterol Sulfate 1 puff 02/06/22 16:57 Albuterol Common Canister Inhaler IH 03/08/22 16:56 QID PRN PRN SHORTNESS OF BREATH Amlodipine Besylate 5 mg 02/08/22 11:42 02/10/22 10:43 Amlodipine Besylate 5 Mg Tablet PO 03/10/22 11:41 5 mg QAM DAVE Administration Aspirin 81 mg 02/07/22 10:00 02/10/22 10:42 Aspirin 81 Mg Tablet.Ec PO 03/09/22 09:59 81 mg DAILY DAVE Administration Carvedilol 25 mg 02/09/22 22:00 02/10/22 10:43 Carvedilol 12.5 Mg Tablet PO 03/11/22 21:59 25 mg BID DAVE Administration Chlorthalidone 25 mg 02/09/22 14:00 02/10/22 10:43 Chlorthalidone 25 Mg Tablet PO 03/11/22 13:59 25 mg DAILY DAVE Administration Clonidine 0.1 mg 02/09/22 13:04 Clonidine Hcl 0.1 Mg Tablet PO 03/11/22 13:03 BID PRN PRN HYPERTENSION Enoxaparin Sodium 40 mg 02/07/22 19:00 02/10/22 10:44 Enoxaparin Sodium 40 Mg/0.4 Ml Syringe SQ 03/09/22 18:59 40 mg DAILY DAVE Administration Famotidine 20 mg 02/08/22 10:00 02/10/22 10:43 Famotidine 20 Mg Tablet PO 03/10/22 09:59 20 mg BID DAVE Administration Hydralazine HCl 10 mg 02/07/22 07:19 02/08/22 04:21 Hydralazine Hcl 20 Mg/Ml Vial IV 03/09/22 07:18 10 mg [id number] PRN Administration HYPERTENSION Hydralazine HCl 25 mg 02/09/22 22:00 02/10/22 10:43 Hydralazine Hcl 25 Mg Tablet PO 03/11/22 21:59 25 mg BID DAVE Administration Insulin Glargine 30 unit 02/06/22 18:00 02/09/22 17:31 Insulin Glargine 1 Unit SQ 03/08/22 17:59 30 unit 1800 DAVE Administration Ketorolac Tromethamine 30 mg 02/07/22 09:22 02/10/22 05:18 Ketorolac Tromethamine 30 Mg/Ml Inj IV 02/12/22 09:21 30 mg Q6H PRN PRN Administration PAIN Lorazepam 0.5 mg 02/07/22 12:08 Lorazepam 0.5 Mg Tablet PO 03/09/22 12:07 HS PRN PRN INSOMNIA Meclizine HCl 12.5 mg 02/08/22 17:53 Meclizine Hcl 25 Mg Tablet PO 03/10/22 17:52 TID PRN PRN DIZZINESS Ondansetron HCl 4 mg 02/07/22 09:24 02/08/22 10:12 Ondansetron Hcl 4 Mg/2 Ml Vial IV 03/09/22 09:23 4 mg Q4H PRN PRN Administration NAUSEA/VOMITING Patient Own Med : 1 each 02/09/22 07:00 02/10/22 08:09 Trelogy 03/11/22 06:59 1 each DAILY DAVE Administration Simvastatin 20 mg 02/06/22 22:00 02/09/22 21:08 Simvastatin 20 Mg Tablet PO 03/08/22 21:59 20 mg HS DAVE Administration Valsartan 160 mg 02/08/22 11:40 02/10/22 10:43 Valsartan 80 Mg Tablet PO 03/10/22 11:39 160 mg DAILY DAVE Administration Discontinued Medications Generic Name Dose Route Start Last Admin Trade Name Freq PRN Reason Stop Dose Admin Al Hydrox/Mg Hydrox/Simethicone Confirm 02/07/22 17:38 Mag Hydrox/Al Hydrox/Simeth 30 Ml Udcup Administered 02/07/22 17:39 Dose 30 ml .ROUTE .STK-MED ONE Albuterol Sulfate 2.5 mg 02/07/22 11:00 02/08/22 10:55 Albuterol Sulfate 2.5 Mg/3 Ml Neb 03/09/22 10:59 2.5 mg Q4HRT DAVE Administration Amlodipine Besylate 10 mg 02/07/22 10:00 02/07/22 09:27 Amlodipine Besylate 5 Mg Tablet PO 03/09/22 09:59 Not Given DAILY DAVE Amlodipine Besylate 5 mg 02/07/22 20:00 11/05/22 21:10 Amlodipine Besylate 5 Mg Tablet PO 02/07/22 20:01 5 mg ONCE ONE Administration Carvedilol 3.125 mg 02/06/22 22:00 02/07/22 08:00 Carvedilol 3.125 Mg Tablet PO 03/08/22 21:59 3.125 mg BID DAVE Administration Carvedilol 12.5 mg 02/07/22 19:30 02/09/22 08:58 Carvedilol 12.5 Mg Tablet PO 03/09/22 19:29 12.5 mg BID DAVE Administration Clonidine 0.1 mg 02/06/22 22:00 02/09/22 08:58 Clonidine Hcl 0.1 Mg Tablet PO 03/08/22 21:59 0.1 mg BID DAVE Administration Clonidine 0.1 mg 02/07/22 17:33 02/07/22 17:43 Clonidine Hcl 0.1 Mg Tablet PO 02/07/22 17:34 0.1 mg STAT ONE Administration Famotidine 20 mg 02/07/22 23:10 02/07/22 23:18 Famotidine 20 Mg/1 Vial IV 02/07/22 23:11 20 mg 1XONLY ONE Administration Hydralazine HCl 10 mg 02/06/22 14:27 02/06/22 14:32 Hydralazine Hcl 20 Mg/Ml Vial IV 02/06/22 14:28 10 mg STAT ONE Administration Hydralazine HCl Confirm 02/06/22 14:29 Hydralazine Hcl 20 Mg/Ml Vial Administered 02/06/22 14:30 Dose 20 mg .ROUTE .STK-MED ONE Hydralazine HCl 10 mg 02/06/22 15:06 02/06/22 15:10 Hydralazine Hcl 20 Mg/Ml Vial IV 02/06/22 15:07 10 mg STAT ONE Administration Hydralazine HCl Confirm 02/06/22 15:09 Hydralazine Hcl 20 Mg/Ml Vial Administered 02/06/22 15:10 Dose 20 mg .ROUTE .STK-MED ONE Hydralazine HCl 10 mg 02/06/22 16:49 02/07/22 01:03 Hydralazine Hcl 20 Mg/Ml Vial IV 03/08/22 16:48 10 mg Q4H PRN PRN Administration HYPERTENSION Hydralazine HCl 20 mg 02/07/22 04:48 02/07/22 04:52 Hydralazine Hcl 20 Mg/Ml Vial IV 02/07/22 04:49 20 mg STAT ONE Administration Hydralazine HCl 25 mg 02/07/22 13:00 02/09/22 11:48 Hydralazine Hcl 25 Mg Tablet PO 03/09/22 12:59 25 mg QID DAVE Administration Hydralazine HCl 25 mg 02/07/22 19:01 02/07/22 20:39 Hydralazine Hcl 20 Mg/Ml Vial IV 02/07/22 19:02 25 mg STAT ONE Administration Lidocaine HCl Confirm 02/07/22 17:38 Lidocaine Hcl 2% Viscous 15 Ml Udcup Administered 02/07/22 17:39 Dose 15 ml .ROUTE .STK-MED ONE Losartan Potassium 50 mg 02/06/22 22:00 02/08/22 10:01 Losartan Potassium 50 Mg Tablet PO 03/08/22 21:59 Not Given BID DAVE Magnesium Hydroxide 45 ml 02/07/22 17:40 02/07/22 17:43 Mag Hydrx/Alum Hyd/Simeth/Lido 45 Ml Bottle PO 02/07/22 17:41 45 ml STAT ONE Administration Miscellaneous Information 1 each 02/06/22 17:15 Medication Intervention 1 Each Each 03/08/22 17:14 .RT TO CHECK DAVE Morphine Sulfate 2 mg 02/06/22 15:47 02/06/22 15:55 Morphine Sulfate 2 Mg/Ml Inj IV 02/06/22 15:48 2 mg STAT ONE Administration Morphine Sulfate Confirm 02/06/22 15:54 Morphine Sulfate 2 Mg/Ml Inj Administered 02/06/22 15:55 Dose 2 mg .ROUTE .STK-MED ONE Morphine Sulfate 4 mg 02/06/22 16:49 02/07/22 03:38 Morphine Sulfate 4 Mg/Ml Injection IV 02/11/22 16:48 4 mg Q6H PRN PRN Administration PAIN Ondansetron HCl 4 mg 02/06/22 15:47 02/06/22 15:55 Ondansetron Hcl 4 Mg/2 Ml Vial IV 02/06/22 15:48 4 mg STAT ONE Administration Ondansetron HCl Confirm 02/06/22 15:53 Ondansetron Hcl 4 Mg/2 Ml Vial Administered 02/06/22 15:54 Dose 4 mg .ROUTE .STK-MED ONE Ondansetron HCl 4 mg 02/06/22 16:49 02/07/22 06:49 Ondansetron Hcl 4 Mg/2 Ml Vial IV 03/08/22 16:48 4 mg Q6H PRN PRN Administration NAUSEA/VOMITING Fluticasone/Salmeterol 2 puff 02/06/22 19:00 02/08/22 07:09 Fluticasone/Salmeterol 115/21 - 120 Puff Common Canister IH 03/08/22 18:59 2 puff BIDRT DAVE Administration Valsartan 160 mg 02/07/22 20:00 02/07/22 23:18 Valsartan 80 Mg Tablet PO 02/07/22 20:01 160 mg ONCE ONE Administration Intake & Output (Last 24 hours) 02/08/22 02/09/22 02/10/22 02/11/22 11:59 11:59 11:59 11:59 Intake Total 1160 400 Output Total 1800 950 Balance -640 -550 Weight 85.3 kg Laboratory Results (Last 24 hours) 02/10/22 02/10/22 02/09/22 11:10 07:43 21:19 POC Glucometer 193 H 86 114 H 02/09/22 16:23 POC Glucometer 89 Orders (Last 24 hours) Category Date Time Status Heart-Healthy Diet Diet 02/10/22 Lunch Active NPO Diet 02/10/22 00:01 Completed Renal Ultrasound [KIDNEY] [US] Routine Exams 02/10/22 08:00 Completed POCT GLUCOSE Stat Lab 02/09/22 16:23 Completed POCT GLUCOSE Stat Lab 02/09/22 21:19 Completed POCT GLUCOSE Stat Lab 02/10/22 07:43 Completed POCT GLUCOSE Stat Lab 02/10/22 11:10 Completed Carvedilol 12.5 mg [Coreg 12.5 mg] Med 02/09/22 22:00 Active 25 mg PO BID Chlorthalidone Med 02/09/22 14:00 Active 25 mg PO DAILY Clonidine HCl 0.1 mg [Clonidine 0.1 mg Tablet] Med 02/09/22 13:04 Active 0.1 mg PO BID PRN PRN HydrALAzine HCL 25 MG TAB [Apresoline 25 MG TABLET Med 02/09/22 22:00 Active *] 25 mg PO BID Patient Care Notes (Last 24 hours) 02/09/22 20:39 Nursing Note by ROMERO MEANS PT'S O2 SAT ON ROOM AIR WHILE SLEEPING WAS 85-86%. CALLED RESPIRATORY AND RESPIRATORY RECOMMENDED 2L O2. O2 PLACED ON VIA NASAL CANNULA AT 2L AND SATS ARE 95%. Initialized on 02/09/22 20:39 - END OF NOTE Code(s): R09.02 - HYPOXEMIA; Z99.81 - DEPENDENCE ON SUPPLEMENTAL OXYGEN - Discharge Disposition: Home, Self-Care Condition: Fair Prescriptions: New HydrALAzine HCL 25 MG TAB [Apresoline 25 MG TABLET] 25 mg PO BID #60 tablet Chlorthalidone 25 mg PO DAILY #30 tablet Carvedilol 12.5 mg [Coreg 12.5 mg] 25 mg PO BID #60 tablet Amlodipine Besylate 5 mg [Norvasc 5 mg] 5 mg PO QAM #30 tablet Valsartan 160 mg PO DAILY #60 tablet Continue Albuterol Common Canister [Ventolin Common Canister] 1 puff IH QID PRN PRN Reason: Shortness Of Breath Aspirin EC 81 mg [Ecotrin 81 mg] 81 mg PO DAILY Atorvastatin Calcium 20 mg PO HS Fluticasone/Umeclidin/Vilanter [Trelegy Ellipta 100-62.5-25] 1 puff IH DAILY Insulin Detemir [Levemir] 30 unit SQ 1800 Discontinued Losartan Potassium 50 mg PO BID cloNIDine HCL [Clonidine HCl] 0.1 mg PO BID Carvedilol 3.125 mg [Coreg 3.125 MG] 3.125 mg PO BID Amlodipine Besylate 10 mg PO DAILY Outpatient Orders: Sleep Study Facility: [facility], Location: RESPIRATORY THERAPY Instructions: High Blood Pressure (DC), High Blood Pressure Emergencies Additional Instructions: WEAR 2L/NC WHEN SLEEPING. CALL LOUISE AT [phone] (HETH) WHEN YOU GET HOME SO THEY CAN DELIVER YOUR HOME CONCENTRATOR Follow up with: SHERINE NAVARRO [ACTIVE STAFF] - 02/12/22 2:00 pm SILVIA CAMPBELL MD [Primary Care Provider] - 02/17/22 2:00 pm
--- NOTE | 2022-02-10 13:29 | ECHO ---
Transthoracic echocardiographic examination and color Doppler was done on 02/09/2022. INDICATION: Hypertension. IMPRESSION: 1) NO REGIONAL WALL MOTION ABNORMALITY. ESTIMATED GLOBAL LEFT VENTRICULAR EJECTION FRACTION AROUND 60%. 2) MILD MITRAL REGURGITATION. 3) MILD TRICUSPID REGURGITATION. RIGHT VENTRICULAR SYSTOLIC PRESSURE OF 22 MM OF MERCURY. 4) LEFT VENTRICULAR HYPERTROPHY. 5) LEFT VENTRICLE DIASTOLIC DYSFUNCTION. The left ventricle is visualized and demonstrated adequate motion of all the segments. Estimated global left ventricular ejection fraction around 60%. There is concentric left ventricular hypertrophy. The mitral valve is seen and this opens adequately. There is mild mitral regurgitation. Left atrium is normal. Tissue Doppler study of the lateral mitral annulus suggestive of left ventricle diastolic dysfunction. The aortic valve opens adequately. The peak gradient across the left ventricular outflow tract is 15 mm of Mercury. The right side chambers are normal. There is mild tricuspid regurgitation. The right ventricular systolic pressure of 22 mm of Mercury.
== END 2022-02-10 13:46 | disposition home or self-care (01) | DRG 948 ==
LOC: ED 14:11 → MED SURG 16:40 → OBSVTOIN 02-07 11:58 → ICU 02-07 19:15
PROVIDERS: ADMIT General Practice; ATTEND General Practice
DX: R77.8 Other specified abnormalities of plasma proteins (principal); I16.1 Hypertensive emergency; K92.1 Melena; J44.9 Chronic obstructive pulmonary disease, unspecified; G47.36 Sleep related hypoventilation in conditions classified elsewhere; R09.02 Hypoxemia; I10 Essential (primary) hypertension; E11.9 Type 2 diabetes mellitus without complications; E78.5 Hyperlipidemia, unspecified; R51.9 Headache, unspecified; J20.9 Acute bronchitis, unspecified; R07.9 Chest pain, unspecified; D72.829 Elevated white blood cell count, unspecified; Z79.899 Other long term (current) drug therapy; Z20.828 Contact with and (suspected) exposure to other viral communicable diseases; Z99.81 Dependence on supplemental oxygen
CPT/HCPCS: 0241U; 36000; 36415; 70450; 71046; 76770; 80048; 80053; 81015; 82947; 83735; 84484; 85025; 85610; 93005; 93041; 93268; 93306; 93880; 94640; 94760; 94762; 96374; 96375; 96376; 99284; 99291; G0378; J0360; J1650; J1885; J2270; J2405; J7609; A9270-GY